=== PATIENT | male | born 2000 | race Caucasian/White ===

== ENCOUNTER 2021-11-04 10:05 | Inpatient (IN) | payer OTHER ==
[2021-11-04 10:53] VITALS: BMI 22.1
[2021-11-04] MEDS ORDERED: BUPRENORPHINE HCL 150 MCG, BUPRENORPHINE HCL 75 MCG BC PRN (11:14)
[2021-11-04] MEDS ORDERED: DICYCLOMINE HCL 10 MG CAPSULE PO PRN (11:14)
[2021-11-04] MEDS ORDERED: BENZOCAINE/MENTHOL (CHLORASEPTIC ) LOZENGE MM PRN (11:14)
[2021-11-04] MEDS ORDERED: ACETAMINOPHEN 325 MG TABLET (FP) PO PRN ×2 (11:14)
[2021-11-04] MEDS ORDERED: LOPERAMIDE HCL 2 MG CAPSULE PO PRN (11:14)
[2021-11-04] MEDS ORDERED: IBUPROFEN 400 MG TABLET (FP) PO PRN (11:14)
[2021-11-04] MEDS ORDERED: ONDANSETRON *ODT* 4 MG TABLET SL PRN (11:14)
[2021-11-04] MEDS ORDERED: NALOXONE HCL (KLOXXADO) 8 MG SPRAY NS PRN (11:14)
[2021-11-04] MEDS ORDERED: BISMUTH SUBSALICYLATE 262 MG/15 ML BTL PO PRN (11:14)
[2021-11-04] MEDS ORDERED: BUPRENORPHINE HCL 150 MCG, BUPRENORPHINE HCL 75 MCG BC ONE (11:14)
[2021-11-04] MEDS ORDERED: MAGNESIUM CITRATE 300 ML BOTTLE PO PRN (11:14)
[2021-11-04] MEDS ORDERED: MAG HYDROX/AL HYDROX/SIMETH 30 ML UNIT-DOSE CUP PO PRN (11:14)
[2021-11-04] MEDS ORDERED: cloNIDine HCL 0.1 MG TABLET PO ONE (11:14)
[2021-11-04] MEDS ORDERED: IBUPROFEN 600 MG TABLET (FP) PO PRN (11:14)
[2021-11-04] MEDS ORDERED: MAGNESIUM HYDROX 2400MG/30ML ORAL SUSPENSION 30 ML CUP PO PRN (11:14)
[2021-11-04] MEDS ORDERED: BUPRENORPHINE HCL 150 MCG FILM BC ONE (12:02)
[2021-11-04] MEDS ORDERED: BUPRENORPHINE HCL 75 MCG FILM BC ONE (12:03)
[2021-11-04] MEDS: METHOCARBAMOL 500 MG TABLET PO PRN ×2 (12:04→18:13)
[2021-11-04] MEDS: PRENATAL VITAMINS W/ FOLIC ACID TABLET (FP) PO SCH (12:05)
[2021-11-04] MEDS: NICOTINE 14 MG/24 HOURS TOPICAL PATCH TD SCH (12:10)
[2021-11-04] MEDS: NICOTINE 10 MG CARTRIDGE (INHALER) IH PRN ×3 (13:31→22:24)
[2021-11-04] MEDS: diazePAM 5 MG TABLET PO PRN ×3 (13:32→22:21)
[2021-11-04] MEDS: hydrOXYzine PAMOATE 25 MG CAPSULE (FP) PO SCH ×3 (13:32→22:19)
[2021-11-04 14:34] LABS: HEMATOCRIT 41.2 % (35.4-49); HEMOGLOBIN 13.8 GM/dL (11.7-16.9); MCHC 33.5 g/dl (32.0-35.9); MEAN CELL VOLUME 86.6 fl (80-96); MEAN PLT VOLUME 7.8 fl (7.5-11.1); PLATELET COUNT 245 10^3/uL (134-434); RBC 4.76 M/mm3 (4.00-5.60); RDW 13.9 % (11.9-15.9); WHITE BLOOD COUNT 4.8 K/mm3 (4.0-10.0)
[2021-11-04 14:36] LABS: ALBUMIN 4.3 g/dl (3.4-5.0); CALCIUM 9.7 mg/dL (8.5-10.1)
[2021-11-04 14:37] LABS: BLOOD UREA NITROGEN 6.7 mg/dL (7-18)
[2021-11-04 14:39] LABS: CREATININE 0.9 mg/dL (0.55-1.3)
[2021-11-04 14:41] LABS: BILIRUBIN,TOTAL 0.8 mg/dL (0.2-1); TOT PROT 7.5 g/dl (6.4-8.2)
[2021-11-04] MEDS ORDERED: cloNIDine HCL 0.1 MG TABLET PO PRN (15:14)
[2021-11-04] MEDS ORDERED: THIAMINE HCL 100 MG TABLET (FP) PO SCH (22:00)
[2021-11-04] MEDS ORDERED: MELATONIN 5 MG TABLETS PO SCH (22:00)
[2021-11-05] MEDS ORDERED: BUPRENORPHINE HCL 150 MCG, BUPRENORPHINE HCL 75 MCG BC PRN
[2021-11-05] MEDS ORDERED: BUPRENORPHINE HCL 150 MCG, BUPRENORPHINE HCL 75 MCG BC SCH (06:00)
[2021-11-05] MEDS ORDERED: BUPRENORPHINE HCL 150 MCG FILM BC ONE ×2 (07:42→09:54)
[2021-11-05] MEDS ORDERED: BUPRENORPHINE HCL 75 MCG FILM BC ONE ×2 (07:42→09:55)
[2021-11-05] MEDS: hydrOXYzine PAMOATE 25 MG CAPSULE (FP) PO SCH ×3 (07:46→14:28)
[2021-11-05] MEDS: NICOTINE 10 MG CARTRIDGE (INHALER) IH PRN (09:29)
[2021-11-05] MEDS: PRENATAL VITAMINS W/ FOLIC ACID TABLET (FP) PO SCH (10:25)
[2021-11-05] MEDS: NICOTINE 14 MG/24 HOURS TOPICAL PATCH TD SCH (10:26)
[2021-11-05 13:12] VITALS: BP 144/66; PULSE 76; TEMP 97.1
[2021-11-06] MEDS ORDERED: BUPRENORPHINE HCL 450 MCG FILM BC SCH (06:00)
[2021-11-07] MEDS ORDERED: BUPRENORPHINE/NALOXONE 4 MG/1 MG FILM PACKET SL SCH (06:00)
[2021-11-08] MEDS ORDERED: BUPRENORPHINE/NALOXONE 8 MG/2 MG FILM PACKET SL ONE (06:00)
== END 2021-11-05 14:58 | disposition left against medical advice (07) | DRG 770 ==
LOC: YASAS 10:05 → Y3N 11:15
PROVIDERS: ADMIT Allergy & Immunology; ATTEND Surgery
PROC: HZ2ZZZZ Detoxification Services for Substance Abuse Treatment (ICD-10-PCS; principal; 2021-11-04)
DX: F11.23 Opioid dependence with withdrawal (principal); F10.230 Alcohol dependence with withdrawal, uncomplicated; F13.230 Sedative, hypnotic or anxiolytic dependence with withdrawal, uncomplicated; F14.20 Cocaine dependence, uncomplicated; F17.210 Nicotine dependence, cigarettes, uncomplicated
CPT/HCPCS: 36415; 80053; 85027; 86780; 93005; 93010; C9803-CS; J0735; U0003; U0005

== ENCOUNTER 2021-12-04 14:51 | Inpatient (IN) | payer OTHER ==
[2021-12-04 15:47] VITALS: BMI 21.7
[2021-12-04] MEDS ORDERED: MAGNESIUM HYDROX 2400MG/30ML ORAL SUSPENSION 30 ML CUP PO PRN (17:28)
[2021-12-04] MEDS ORDERED: BISMUTH SUBSALICYLATE 524 MG/30 ML PO PRN (17:28)
[2021-12-04] MEDS ORDERED: P-EPHED 60MG/TRIPROLIDI 2.5MG TABLET PO PRN (17:28)
[2021-12-04] MEDS ORDERED: MAGNESIUM CITRATE 300 ML BOTTLE PO PRN (17:28)
[2021-12-04] MEDS ORDERED: BENZOCAINE/MENTHOL (CHLORASEPTIC ) LOZENGE MM PRN (17:28)
[2021-12-04] MEDS ORDERED: IBUPROFEN 400 MG TABLET (FP) PO PRN (17:28)
[2021-12-04] MEDS ORDERED: LOPERAMIDE HCL 2 MG CAPSULE PO PRN (17:28)
[2021-12-04] MEDS ORDERED: IBUPROFEN 600 MG TABLET (FP) PO PRN (17:28)
[2021-12-04] MEDS ORDERED: PROCHLORPERAZINE MALEATE 5 MG TABLET PO PRN (17:28)
[2021-12-04] MEDS ORDERED: MAG HYDROX/AL HYDROX/SIMETH 30 ML UNIT-DOSE CUP PO PRN (17:28)
[2021-12-04] MEDS ORDERED: DICYCLOMINE HCL 10 MG CAPSULE PO PRN (17:28)
[2021-12-04] MEDS ORDERED: guaiFENesin 200 MG/10 ML 10 ML UNIT-DOSE CUPS PO PRN (17:28)
[2021-12-04] MEDS ORDERED: ACETAMINOPHEN 325 MG TABLET (FP) PO PRN ×2 (17:28)
[2021-12-04] MEDS ORDERED: methaDONE HCL 10 MG TABLET (FOR DETOX USE ONLY) PO ONE (17:31)
[2021-12-04] MEDS: NICOTINE POLACRILEX 2 MG GUM BUC PRN ×2 (19:21→22:29)
[2021-12-04] MEDS: THIAMINE HCL 100 MG TABLET (FP) PO SCH (22:28)
[2021-12-04] MEDS: cloNIDine HCL 0.1 MG TABLET PO PRN (22:28)
[2021-12-04] MEDS: MELATONIN 5 MG TABLETS PO PRN (22:28)
[2021-12-04] MEDS: METHOCARBAMOL 500 MG TABLET PO PRN (22:28)
[2021-12-05] MEDS: NICOTINE POLACRILEX 2 MG GUM BUC PRN ×5 (06:03→22:08)
[2021-12-05] MEDS: METHOCARBAMOL 500 MG TABLET PO PRN ×4 (06:03→22:49)
[2021-12-05] MEDS: hydrOXYzine PAMOATE 25 MG CAPSULE (FP) PO PRN ×4 (06:03→22:05)
[2021-12-05 09:33] VITALS: RESP 18
[2021-12-05] MEDS ORDERED: PRENATAL VITAMINS W/ FOLIC ACID TABLET (FP) PO SCH (10:00)
[2021-12-05] MEDS ORDERED: NICOTINE 21 MG/24 HOURS TOPICAL PATCH TD SCH (13:00)
[2021-12-05] MEDS: MELATONIN 5 MG TABLETS PO PRN (22:05)
[2021-12-05] MEDS: THIAMINE HCL 100 MG TABLET (FP) PO SCH (22:05)
[2021-12-06] MEDS: METHOCARBAMOL 500 MG TABLET PO PRN (05:51)
[2021-12-06] MEDS: NICOTINE POLACRILEX 2 MG GUM BUC PRN ×2 (05:51→08:30)
[2021-12-06] MEDS: hydrOXYzine PAMOATE 25 MG CAPSULE (FP) PO PRN (05:53)
[2021-12-06] MEDS ORDERED: methaDONE HCL 10 MG TABLET (FOR DETOX USE ONLY) PO ONE ×2 (08:07→10:00)
[2021-12-06] MEDS: cloNIDine HCL 0.1 MG TABLET PO PRN (08:28)
[2021-12-06 09:22] VITALS: BP 134/58; PULSE 69; TEMP 98
== END 2021-12-06 09:09 | disposition home or self-care (01) | DRG 773 ==
LOC: YASAS 14:51 → Y3N 18:20
PROVIDERS: ADMIT Allergy & Immunology; ATTEND Surgery
PROC: HZ2ZZZZ Detoxification Services for Substance Abuse Treatment (ICD-10-PCS; principal; 2021-12-04)
DX: F11.23 Opioid dependence with withdrawal (principal); F14.20 Cocaine dependence, uncomplicated; F17.210 Nicotine dependence, cigarettes, uncomplicated; Z56.0 Unemployment, unspecified
CPT/HCPCS: 87811; C9803-CS; J0735; U0003; U0005

== ENCOUNTER 2022-05-05 16:16 | Inpatient (IN) | payer OTHER ==
[2022-05-05] MEDS ORDERED: MAG HYDROX/AL HYDROX/SIMETH 30 ML UNIT-DOSE CUP PO PRN (16:56)
[2022-05-05] MEDS ORDERED: ACETAMINOPHEN 325 MG TABLET (FP) PO PRN ×2 (16:56)
[2022-05-05] MEDS ORDERED: IBUPROFEN 600 MG TABLET (FP) PO PRN (16:56)
[2022-05-05] MEDS ORDERED: BENZOCAINE/MENTHOL (CHLORASEPTIC ) LOZENGE MM PRN (16:56)
[2022-05-05] MEDS ORDERED: ONDANSETRON *ODT* 4 MG TABLET SL PRN (16:56)
[2022-05-05] MEDS ORDERED: NALOXONE HCL (KLOXXADO) 8 MG SPRAY NS PRN (16:56)
[2022-05-05] MEDS ORDERED: BISMUTH SUBSALICYLATE 524 MG/30 ML PO PRN (16:56)
[2022-05-05] MEDS ORDERED: LOPERAMIDE HCL 2 MG CAPSULE PO PRN (16:56)
[2022-05-05] MEDS ORDERED: MAGNESIUM HYDROX 2400MG/30ML ORAL SUSPENSION 30 ML CUP PO PRN (16:56)
[2022-05-05] MEDS ORDERED: POLYETHYLENE GLYCOL (HEALTHYLAX) 3350 17 GM PACKET PO PRN (16:56)
[2022-05-05] MEDS ORDERED: DICYCLOMINE HCL 10 MG CAPSULE PO PRN (16:56)
[2022-05-05 17:16] VITALS: BMI 21.2
[2022-05-05] MEDS: NICOTINE 21 MG/24 HOURS TOPICAL PATCH TD SCH (17:42)
[2022-05-05] MEDS: PRENATAL VITAMINS W/ FOLIC ACID TABLET (FP) PO SCH (17:42)
[2022-05-05] MEDS ORDERED: methaDONE HCL 10 MG TABLET (FOR DETOX USE ONLY) PO ONE (18:00)
[2022-05-05] MEDS: NICOTINE 10 MG CARTRIDGE (INHALER) IH PRN ×2 (18:40→22:18)
[2022-05-05] MEDS: METHOCARBAMOL 500 MG TABLET PO PRN (20:49)
[2022-05-05] MEDS: MELATONIN 5 MG TABLETS PO SCH (22:15)
[2022-05-05] MEDS: THIAMINE HCL 100 MG TABLET (FP) PO SCH (22:15)
[2022-05-05] MEDS: IBUPROFEN 400 MG TABLET (FP) PO PRN (22:17)
[2022-05-05] MEDS: hydrOXYzine PAMOATE 25 MG CAPSULE (FP) PO PRN (22:17)
[2022-05-06] MEDS: METHOCARBAMOL 500 MG TABLET PO PRN ×3 (05:11→17:20)
[2022-05-06] MEDS: hydrOXYzine PAMOATE 25 MG CAPSULE (FP) PO PRN ×2 (05:11→17:19)
[2022-05-06] MEDS: PRENATAL VITAMINS W/ FOLIC ACID TABLET (FP) PO SCH (10:08)
[2022-05-06] MEDS: NICOTINE 21 MG/24 HOURS TOPICAL PATCH TD SCH (10:08)
[2022-05-06] MEDS: NICOTINE 10 MG CARTRIDGE (INHALER) IH PRN ×3 (10:12→21:47)
[2022-05-06] MEDS: diazePAM 5 MG TABLET PO PRN ×3 (12:06→21:45)
[2022-05-06 13:39] LABS: HEMATOCRIT 38.7 % (35.4-49); HEMOGLOBIN 12.7 GM/dL (11.7-16.9); MCH 28.6 pg (25.7-33.7); MCHC 32.7 g/dl (32.0-35.9); MEAN CELL VOLUME 87.3 fl (80-96); MEAN PLT VOLUME 7.8 fl (7.5-11.1); PLATELET COUNT 282 10^3/uL (134-434); RBC 4.44 M/mm3 (4.00-5.60); RDW 13.8 % (11.9-15.9); WHITE BLOOD COUNT 7.6 K/mm3 (4.0-10.0)
[2022-05-06 14:45] LABS: CHLORIDE 109 mmol/L (98-107); SODIUM 145 mmol/L (136-145)
[2022-05-06 14:49] LABS: ALBUMIN 3.5 g/dl (3.4-5.0); ANION GAP 8 MMOL/L (8-16); CO2 28 mmol/L (21-32); GLUCOSE,RANDOM 87 mg/dL (74-106)
[2022-05-06 14:50] LABS: BLOOD UREA NITROGEN 14.3 mg/dL (7-18)
[2022-05-06 14:53] LABS: CREATININE 0.9 mg/dL (0.55-1.3); SGOT/AST < 3 U/L (15-37); SGPT/ALT 16 U/L (13-61)
[2022-05-06 14:54] LABS: ALK PHOS 49 U/L (45-117); BILIRUBIN,TOTAL 0.2 mg/dL (0.2-1); TOT PROT 6.4 g/dl (6.4-8.2)
[2022-05-06] MEDS: cloNIDine HCL 0.1 MG TABLET PO PRN ×2 (17:19→22:30)
[2022-05-06] MEDS: MELATONIN 5 MG TABLETS PO SCH (22:31)
[2022-05-06] MEDS: THIAMINE HCL 100 MG TABLET (FP) PO SCH (22:31)
[2022-05-07] MEDS: diazePAM 5 MG TABLET PO PRN ×2 (05:24→12:07)
[2022-05-07] MEDS: METHOCARBAMOL 500 MG TABLET PO PRN ×2 (05:51→12:07)
[2022-05-07] MEDS: IBUPROFEN 400 MG TABLET (FP) PO PRN (05:51)
[2022-05-07 09:22] VITALS: PULSE 85; RESP 18
[2022-05-07] MEDS ORDERED: methaDONE HCL 10 MG TABLET (FOR DETOX USE ONLY) PO ONE (10:00)
[2022-05-07] MEDS: NICOTINE 21 MG/24 HOURS TOPICAL PATCH TD SCH (10:02)
[2022-05-07] MEDS: PRENATAL VITAMINS W/ FOLIC ACID TABLET (FP) PO SCH (10:02)
[2022-05-07] MEDS: NICOTINE 10 MG CARTRIDGE (INHALER) IH PRN (10:06)
[2022-05-07 13:02] VITALS: BP 150/74; TEMP 97.2
[2022-05-09] MEDS ORDERED: methaDONE HCL 10 MG TABLET (FOR DETOX USE ONLY) PO ONE (10:00)
== END 2022-05-07 13:10 | disposition left against medical advice (07) | DRG 770 ==
LOC: YASAS 16:16 → Y6N 17:16
PROVIDERS: ADMIT Allergy & Immunology; ATTEND Surgery
PROC: HZ2ZZZZ Detoxification Services for Substance Abuse Treatment (ICD-10-PCS; principal; 2022-05-05)
DX: F11.23 Opioid dependence with withdrawal (principal); F14.20 Cocaine dependence, uncomplicated; F12.90 Cannabis use, unspecified, uncomplicated; F17.210 Nicotine dependence, cigarettes, uncomplicated
CPT/HCPCS: 36415; 80053; 85027; 86780; C9803-CS; U0003; U0005

== ENCOUNTER 2022-05-11 15:14 | Inpatient (IN) | payer OTHER ==
[2022-05-11 15:36] VITALS: BMI 22.9
[2022-05-11] MEDS ORDERED: NALOXONE HCL (KLOXXADO) 8 MG SPRAY NS PRN (18:10)
[2022-05-11] MEDS ORDERED: POLYETHYLENE GLYCOL (HEALTHYLAX) 3350 17 GM PACKET PO PRN (18:10)
[2022-05-11] MEDS ORDERED: DICYCLOMINE HCL 10 MG CAPSULE PO PRN (18:10)
[2022-05-11] MEDS ORDERED: MAG HYDROX/AL HYDROX/SIMETH 30 ML UNIT-DOSE CUP PO PRN (18:10)
[2022-05-11] MEDS ORDERED: IBUPROFEN 400 MG TABLET (FP) PO PRN (18:10)
[2022-05-11] MEDS ORDERED: ONDANSETRON *ODT* 4 MG TABLET SL PRN (18:10)
[2022-05-11] MEDS ORDERED: BENZOCAINE/MENTHOL (CHLORASEPTIC ) LOZENGE MM PRN (18:10)
[2022-05-11] MEDS ORDERED: IBUPROFEN 600 MG TABLET (FP) PO PRN (18:10)
[2022-05-11] MEDS ORDERED: ACETAMINOPHEN 325 MG TABLET (FP) PO PRN ×2 (18:10)
[2022-05-11] MEDS ORDERED: NICOTINE POLACRILEX 2 MG GUM BUC PRN (18:10)
[2022-05-11] MEDS ORDERED: LOPERAMIDE HCL 2 MG CAPSULE PO PRN (18:10)
[2022-05-11] MEDS ORDERED: MAGNESIUM HYDROX 2400MG/30ML ORAL SUSPENSION 30 ML CUP PO PRN (18:10)
[2022-05-11] MEDS ORDERED: BISMUTH SUBSALICYLATE 524 MG/30 ML PO PRN (18:10)
[2022-05-11] MEDS: diazePAM 5 MG TABLET PO PRN (18:44)
[2022-05-11] MEDS: NICOTINE 21 MG/24 HOURS TOPICAL PATCH TD SCH (18:50)
[2022-05-11] MEDS: NICOTINE 10 MG CARTRIDGE (INHALER) IH PRN ×2 (18:50→22:01)
[2022-05-11] MEDS ORDERED: methaDONE HCL 10 MG TABLET (FOR DETOX USE ONLY) PO ONE (19:00)
[2022-05-11] MEDS: METHOCARBAMOL 500 MG TABLET PO PRN (22:00)
[2022-05-11] MEDS: THIAMINE HCL 100 MG TABLET (FP) PO SCH (22:01)
[2022-05-11] MEDS: cloNIDine HCL 0.1 MG TABLET PO PRN (22:01)
[2022-05-11] MEDS: hydrOXYzine PAMOATE 25 MG CAPSULE (FP) PO PRN (22:01)
[2022-05-11] MEDS: MELATONIN 5 MG TABLETS PO SCH (22:01)
[2022-05-12] MEDS: diazePAM 5 MG TABLET PO PRN ×6 (00:34→22:22)
[2022-05-12] MEDS: METHOCARBAMOL 500 MG TABLET PO PRN ×2 (05:24→14:16)
[2022-05-12] MEDS: NICOTINE 10 MG CARTRIDGE (INHALER) IH PRN ×4 (05:26→22:25)
[2022-05-12] MEDS: PRENATAL VITAMINS W/ FOLIC ACID TABLET (FP) PO SCH (10:06)
[2022-05-12] MEDS: NICOTINE 21 MG/24 HOURS TOPICAL PATCH TD SCH (10:07)
[2022-05-12] MEDS: cloNIDine HCL 0.1 MG TABLET PO PRN ×2 (12:16→16:35)
[2022-05-12 20:05] LABS: HEMATOCRIT 37.3 % (35.4-49); HEMOGLOBIN 12.2 GM/dL (11.7-16.9); MCH 28.5 pg (25.7-33.7); MCHC 32.8 g/dl (32.0-35.9); MEAN CELL VOLUME 86.9 fl (80-96); MEAN PLT VOLUME 7.9 fl (7.5-11.1); PLATELET COUNT 263 10^3/uL (134-434); RBC 4.29 M/mm3 (4.00-5.60); RDW 13.6 % (11.9-15.9); WHITE BLOOD COUNT 6.5 K/mm3 (4.0-10.0)
[2022-05-12 20:09] LABS: ALBUMIN 3.2 g/dl (3.4-5.0); BLOOD UREA NITROGEN 7.8 mg/dL (7-18); CALCIUM 9.1 mg/dL (8.5-10.1)
[2022-05-12 20:12] LABS: CREATININE 0.9 mg/dL (0.55-1.3)
[2022-05-12 20:14] LABS: BILIRUBIN,TOTAL 0.5 mg/dL (0.2-1)
[2022-05-12] MEDS: hydrOXYzine PAMOATE 25 MG CAPSULE (FP) PO PRN (20:26)
[2022-05-12] MEDS: THIAMINE HCL 100 MG TABLET (FP) PO SCH (22:22)
[2022-05-12] MEDS: MELATONIN 5 MG TABLETS PO SCH (22:22)
[2022-05-13] MEDS: diazePAM 5 MG TABLET PO PRN ×2 (05:24→10:07)
[2022-05-13] MEDS: METHOCARBAMOL 500 MG TABLET PO PRN (05:25)
[2022-05-13] MEDS: cloNIDine HCL 0.1 MG TABLET PO PRN (08:25)
[2022-05-13 09:02] VITALS: BP 112/79; PULSE 87; RESP 18; TEMP 97.1
[2022-05-13] MEDS ORDERED: methaDONE HCL 10 MG TABLET (FOR DETOX USE ONLY) PO ONE (10:00)
[2022-05-13] MEDS: NICOTINE 21 MG/24 HOURS TOPICAL PATCH TD SCH (10:06)
[2022-05-13] MEDS: PRENATAL VITAMINS W/ FOLIC ACID TABLET (FP) PO SCH (10:07)
[2022-05-13] MEDS: NICOTINE 10 MG CARTRIDGE (INHALER) IH PRN (10:10)
[2022-05-15] MEDS ORDERED: methaDONE HCL 10 MG TABLET (FOR DETOX USE ONLY) PO ONE (10:00)
== END 2022-05-13 11:51 | disposition left against medical advice (07) | DRG 770 ==
LOC: YASAS 15:14 → Y6N 18:20
PROVIDERS: ADMIT Allergy & Immunology; ATTEND Surgery
PROC: HZ2ZZZZ Detoxification Services for Substance Abuse Treatment (ICD-10-PCS; principal; 2022-05-11)
DX: F11.23 Opioid dependence with withdrawal (principal); F14.20 Cocaine dependence, uncomplicated; F17.210 Nicotine dependence, cigarettes, uncomplicated; F41.8 Other specified anxiety disorders; F32.A Depression, unspecified; G47.00 Insomnia, unspecified
CPT/HCPCS: 36415; 80053; 85027; 86780; C9803-CS; U0003; U0005

== ENCOUNTER 2022-07-05 13:37 | Inpatient (IN) | payer OTHER ==
[2022-07-05 13:59] VITALS: BMI 19.0
[2022-07-05] MEDS ORDERED: MAGNESIUM HYDROX 2400MG/30ML ORAL SUSPENSION 30 ML CUP PO PRN (18:50)
[2022-07-05] MEDS ORDERED: guaiFENesin 200 MG/10 ML 10 ML UNIT-DOSE CUPS PO PRN (18:50)
[2022-07-05] MEDS ORDERED: BENZOCAINE/MENTHOL (CHLORASEPTIC ) LOZENGE MM PRN (18:50)
[2022-07-05] MEDS ORDERED: POLYETHYLENE GLYCOL (HEALTHYLAX) 3350 17 GM PACKET PO PRN (18:50)
[2022-07-05] MEDS ORDERED: LOPERAMIDE HCL 2 MG CAPSULE PO PRN (18:50)
[2022-07-05] MEDS ORDERED: MAG HYDROX/AL HYDROX/SIMETH 30 ML UNIT-DOSE CUP PO PRN (18:50)
[2022-07-05] MEDS ORDERED: P-EPHED 60MG/TRIPROLIDI 2.5MG TABLET PO PRN (18:50)
[2022-07-05] MEDS: NICOTINE POLACRILEX 2 MG GUM BC PRN ×2 (19:37→21:51)
[2022-07-05] MEDS ORDERED: TUBERCULIN PPD 5 TU/0.1ML VIAL ID ONE (20:02)
[2022-07-05] MEDS: THIAMINE HCL 100 MG TABLET (FP) PO SCH (21:09)
[2022-07-05] MEDS: MELATONIN 5 MG TABLETS PO SCH (21:10)
[2022-07-05] MEDS: NICOTINE 10 MG CARTRIDGE (INHALER) IH PRN (21:50)
[2022-07-06 02:11] LABS: URINE APPEARANCE CLEAR; URINE BILIRUBIN NEGATIVE (NEGATIVE); URINE COLOR YELLOW; URINE GLUCOSE (UA) NEGATIVE (NEGATIVE); URINE KETONE NEGATIVE (NEGATIVE); URINE LEUK ESTERASE NEGATIVE (NEGATIVE); URINE NITRITE NEGATIVE (NEGATIVE); URINE PROTEIN NEGATIVE (NEGATIVE)
[2022-07-06] MEDS: NICOTINE POLACRILEX 2 MG GUM BC PRN ×3 (05:56→21:17)
[2022-07-06] MEDS: NICOTINE 10 MG CARTRIDGE (INHALER) IH PRN ×3 (05:57→21:17)
[2022-07-06] MEDS ORDERED: methaDONE HCL 10 MG TABLET PO ONE (06:00)
[2022-07-06] MEDS: hydrOXYzine PAMOATE 25 MG CAPSULE (FP) PO PRN ×2 (09:49→17:31)
[2022-07-06] MEDS: PRENATAL VITAMINS W/ FOLIC ACID TABLET (FP) PO SCH (11:22)
[2022-07-06] MEDS: NICOTINE 21 MG/24 HOURS TOPICAL PATCH TD SCH (11:23)
[2022-07-06] MEDS: THIAMINE HCL 100 MG TABLET (FP) PO SCH (21:16)
[2022-07-06] MEDS: MELATONIN 5 MG TABLETS PO SCH (21:16)
[2022-07-07] MEDS: hydrOXYzine PAMOATE 25 MG CAPSULE (FP) PO PRN ×3 (02:03→19:50)
[2022-07-07] MEDS ORDERED: methaDONE HCL 10 MG TABLET PO SCH (09:00)
[2022-07-07] MEDS: NICOTINE 10 MG CARTRIDGE (INHALER) IH PRN ×3 (09:16→19:50)
[2022-07-07] MEDS: NICOTINE 21 MG/24 HOURS TOPICAL PATCH TD SCH (09:17)
[2022-07-07] MEDS: NICOTINE POLACRILEX 2 MG GUM BC PRN ×3 (09:17→19:50)
[2022-07-07] MEDS: PRENATAL VITAMINS W/ FOLIC ACID TABLET (FP) PO SCH (10:25)
[2022-07-07 13:55] LABS: HEMATOCRIT 35.7 % (35.4-49); MCH 29.1 pg (25.7-33.7); MCHC 33.5 g/dl (32.0-35.9); MEAN CELL VOLUME 86.6 fl (80-96); MEAN PLT VOLUME 9.1 fl (7.5-11.1); PLATELET COUNT 235 10^3/uL (134-434); RBC 4.12 M/mm3 (4.00-5.60); RDW 13.7 % (11.9-15.9); WHITE BLOOD COUNT 9.2 K/mm3 (4.0-10.0)
[2022-07-07 14:40] LABS: CALCIUM 9.2 mg/dL (8.5-10.1)
[2022-07-07 14:41] LABS: ALBUMIN 3.7 g/dl (3.4-5.0); BLOOD UREA NITROGEN 12.4 mg/dL (7-18)
[2022-07-07 14:44] LABS: CREATININE 0.8 mg/dL (0.55-1.3)
[2022-07-07 14:45] LABS: TOT PROT 6.9 g/dl (6.4-8.2)
[2022-07-07 14:46] LABS: BILIRUBIN,TOTAL 0.2 mg/dL (0.2-1)
[2022-07-07] MEDS: THIAMINE HCL 100 MG TABLET (FP) PO SCH (21:33)
[2022-07-07] MEDS: MELATONIN 5 MG TABLETS PO SCH (21:33)
[2022-07-08] MEDS: hydrOXYzine PAMOATE 25 MG CAPSULE (FP) PO PRN ×3 (06:04→21:50)
[2022-07-08] MEDS: NICOTINE 10 MG CARTRIDGE (INHALER) IH PRN ×5 (06:05→21:49)
[2022-07-08] MEDS: NICOTINE POLACRILEX 2 MG GUM BC PRN ×3 (06:05→12:51)
[2022-07-08] MEDS: NICOTINE 21 MG/24 HOURS TOPICAL PATCH TD SCH (09:48)
[2022-07-08] MEDS: PRENATAL VITAMINS W/ FOLIC ACID TABLET (FP) PO SCH (09:48)
[2022-07-08] MEDS: THIAMINE HCL 100 MG TABLET (FP) PO SCH (21:50)
[2022-07-08] MEDS: MELATONIN 5 MG TABLETS PO SCH (21:50)
[2022-07-09] MEDS: hydrOXYzine PAMOATE 25 MG CAPSULE (FP) PO PRN ×3 (06:22→21:30)
[2022-07-09] MEDS: NICOTINE 10 MG CARTRIDGE (INHALER) IH PRN ×4 (06:22→21:29)
[2022-07-09] MEDS: NICOTINE POLACRILEX 2 MG GUM BC PRN ×4 (06:23→21:31)
[2022-07-09] MEDS: NICOTINE 21 MG/24 HOURS TOPICAL PATCH TD SCH (10:44)
[2022-07-09] MEDS: PRENATAL VITAMINS W/ FOLIC ACID TABLET (FP) PO SCH (10:44)
[2022-07-09] MEDS: THIAMINE HCL 100 MG TABLET (FP) PO SCH (21:29)
[2022-07-09] MEDS: MELATONIN 5 MG TABLETS PO SCH (21:30)
[2022-07-10] MEDS: NICOTINE POLACRILEX 2 MG GUM BC PRN ×5 (06:00→21:33)
[2022-07-10] MEDS: NICOTINE 10 MG CARTRIDGE (INHALER) IH PRN ×3 (06:00→21:32)
[2022-07-10] MEDS: hydrOXYzine PAMOATE 25 MG CAPSULE (FP) PO PRN ×3 (06:00→21:32)
[2022-07-10] MEDS: NICOTINE 21 MG/24 HOURS TOPICAL PATCH TD SCH (09:36)
[2022-07-10] MEDS: PRENATAL VITAMINS W/ FOLIC ACID TABLET (FP) PO SCH (09:36)
[2022-07-10] MEDS: MELATONIN 5 MG TABLETS PO SCH (21:32)
[2022-07-10] MEDS: THIAMINE HCL 100 MG TABLET (FP) PO SCH (21:32)
[2022-07-11] MEDS: NICOTINE 10 MG CARTRIDGE (INHALER) IH PRN ×4 (06:08→21:08)
[2022-07-11] MEDS: hydrOXYzine PAMOATE 25 MG CAPSULE (FP) PO PRN ×3 (06:08→18:19)
[2022-07-11] MEDS: NICOTINE POLACRILEX 2 MG GUM BC PRN ×4 (06:09→21:59)
[2022-07-11] MEDS: NICOTINE 21 MG/24 HOURS TOPICAL PATCH TD SCH (10:38)
[2022-07-11] MEDS: PRENATAL VITAMINS W/ FOLIC ACID TABLET (FP) PO SCH (10:38)
[2022-07-11] MEDS: IBUPROFEN 400 MG TABLET (FP) PO PRN (11:03)
[2022-07-11] MEDS: MELATONIN 5 MG TABLETS PO SCH (21:06)
[2022-07-11] MEDS: ACETAMINOPHEN 325 MG TABLET (FP) PO PRN (21:07)
[2022-07-11] MEDS: THIAMINE HCL 100 MG TABLET (FP) PO SCH (21:08)
[2022-07-12] MEDS: hydrOXYzine PAMOATE 25 MG CAPSULE (FP) PO PRN ×3 (05:51→17:12)
[2022-07-12] MEDS: NICOTINE POLACRILEX 2 MG GUM BC PRN ×5 (05:52→21:42)
[2022-07-12] MEDS: NICOTINE 10 MG CARTRIDGE (INHALER) IH PRN ×5 (05:52→21:41)
[2022-07-12] MEDS: PRENATAL VITAMINS W/ FOLIC ACID TABLET (FP) PO SCH (09:44)
[2022-07-12] MEDS: NICOTINE 21 MG/24 HOURS TOPICAL PATCH TD SCH (09:44)
[2022-07-12] MEDS: ACETAMINOPHEN 325 MG TABLET (FP) PO PRN ×2 (09:47→17:13)
[2022-07-12] MEDS: IBUPROFEN 400 MG TABLET (FP) PO PRN (13:44)
[2022-07-12] MEDS: THIAMINE HCL 100 MG TABLET (FP) PO SCH (21:41)
[2022-07-12] MEDS: MELATONIN 5 MG TABLETS PO SCH (21:41)
[2022-07-13] MEDS: hydrOXYzine PAMOATE 25 MG CAPSULE (FP) PO PRN (05:56)
[2022-07-13] MEDS: ACETAMINOPHEN 325 MG TABLET (FP) PO PRN ×2 (05:57→13:02)
[2022-07-13] MEDS: NICOTINE 10 MG CARTRIDGE (INHALER) IH PRN ×5 (05:58→21:07)
[2022-07-13] MEDS: NICOTINE POLACRILEX 2 MG GUM BC PRN ×4 (05:58→17:24)
[2022-07-13] MEDS: PRENATAL VITAMINS W/ FOLIC ACID TABLET (FP) PO SCH (09:41)
[2022-07-13] MEDS: NICOTINE 21 MG/24 HOURS TOPICAL PATCH TD SCH (09:42)
[2022-07-13] MEDS: IBUPROFEN 400 MG TABLET (FP) PO PRN (09:43)
[2022-07-13] MEDS: BACITRACIN ZINC 15 GM TUBE TOPICAL OINTMENT TP SCH ×2 (12:52→21:07)
[2022-07-13] MEDS: THIAMINE HCL 100 MG TABLET (FP) PO SCH (21:06)
[2022-07-13] MEDS: MELATONIN 5 MG TABLETS PO SCH (21:06)
[2022-07-14] MEDS: ACETAMINOPHEN 325 MG TABLET (FP) PO PRN ×2 (05:47→17:55)
[2022-07-14] MEDS: NICOTINE 10 MG CARTRIDGE (INHALER) IH PRN ×4 (05:49→21:30)
[2022-07-14] MEDS: NICOTINE POLACRILEX 2 MG GUM BC PRN ×5 (05:49→19:57)
[2022-07-14] MEDS ORDERED: methaDONE HCL 10 MG TABLET PO SCH (06:00)
[2022-07-14] MEDS: NICOTINE 21 MG/24 HOURS TOPICAL PATCH TD SCH (09:46)
[2022-07-14] MEDS: PRENATAL VITAMINS W/ FOLIC ACID TABLET (FP) PO SCH (09:46)
[2022-07-14] MEDS: IBUPROFEN 400 MG TABLET (FP) PO PRN (09:48)
[2022-07-14] MEDS: BACITRACIN ZINC 15 GM TUBE TOPICAL OINTMENT TP SCH ×2 (09:51→21:29)
[2022-07-14] MEDS: THIAMINE HCL 100 MG TABLET (FP) PO SCH (21:28)
[2022-07-14] MEDS ORDERED: MELATONIN 5 MG TABLETS PO SCH (22:00)
[2022-07-15] MEDS: NICOTINE 10 MG CARTRIDGE (INHALER) IH PRN ×5 (06:19→21:38)
[2022-07-15] MEDS: NICOTINE POLACRILEX 2 MG GUM BC PRN ×4 (06:19→18:38)
[2022-07-15] MEDS: PRENATAL VITAMINS W/ FOLIC ACID TABLET (FP) PO SCH (10:23)
[2022-07-15] MEDS: NICOTINE 21 MG/24 HOURS TOPICAL PATCH TD SCH (10:24)
[2022-07-15] MEDS: BACITRACIN ZINC 15 GM TUBE TOPICAL OINTMENT TP SCH ×2 (10:24→21:36)
[2022-07-15] MEDS: IBUPROFEN 400 MG TABLET (FP) PO PRN ×2 (10:26→18:38)
[2022-07-15] MEDS: hydrOXYzine PAMOATE 25 MG CAPSULE (FP) PO PRN ×2 (15:51→23:40)
[2022-07-15] MEDS: THIAMINE HCL 100 MG TABLET (FP) PO SCH (21:35)
[2022-07-15] MEDS: SUVOREXANT 10 MG TABLET PO PRN (21:36)
[2022-07-15] MEDS: ACETAMINOPHEN 325 MG TABLET (FP) PO PRN (21:37)
[2022-07-16] MEDS: ACETAMINOPHEN 325 MG TABLET (FP) PO PRN ×3 (05:49→21:07)
[2022-07-16] MEDS: hydrOXYzine PAMOATE 25 MG CAPSULE (FP) PO PRN ×3 (05:49→21:05)
[2022-07-16] MEDS: NICOTINE 10 MG CARTRIDGE (INHALER) IH PRN ×4 (05:50→21:06)
[2022-07-16] MEDS: NICOTINE POLACRILEX 2 MG GUM BC PRN ×4 (05:51→18:56)
[2022-07-16] MEDS: NICOTINE 21 MG/24 HOURS TOPICAL PATCH TD SCH (09:34)
[2022-07-16] MEDS: BACITRACIN ZINC 15 GM TUBE TOPICAL OINTMENT TP SCH ×2 (09:35→21:08)
[2022-07-16] MEDS: PRENATAL VITAMINS W/ FOLIC ACID TABLET (FP) PO SCH (09:35)
[2022-07-16] MEDS: IBUPROFEN 400 MG TABLET (FP) PO PRN ×2 (09:36→18:57)
[2022-07-16] MEDS: THIAMINE HCL 100 MG TABLET (FP) PO SCH (21:05)
[2022-07-16] MEDS: SUVOREXANT 10 MG TABLET PO PRN (21:06)
[2022-07-17] MEDS: ACETAMINOPHEN 325 MG TABLET (FP) PO PRN ×2 (05:56→13:15)
[2022-07-17] MEDS: NICOTINE 10 MG CARTRIDGE (INHALER) IH PRN ×4 (05:58→21:03)
[2022-07-17] MEDS: hydrOXYzine PAMOATE 25 MG CAPSULE (FP) PO PRN ×3 (05:58→21:02)
[2022-07-17] MEDS: NICOTINE POLACRILEX 2 MG GUM BC PRN ×5 (05:59→22:23)
[2022-07-17] MEDS: BACITRACIN ZINC 15 GM TUBE TOPICAL OINTMENT TP SCH ×2 (09:57→21:03)
[2022-07-17] MEDS: NICOTINE 21 MG/24 HOURS TOPICAL PATCH TD SCH (09:57)
[2022-07-17] MEDS: PRENATAL VITAMINS W/ FOLIC ACID TABLET (FP) PO SCH (09:57)
[2022-07-17] MEDS: IBUPROFEN 400 MG TABLET (FP) PO PRN (09:58)
[2022-07-17] MEDS: THIAMINE HCL 100 MG TABLET (FP) PO SCH (21:02)
[2022-07-17] MEDS: SUVOREXANT 10 MG TABLET PO PRN (21:02)
[2022-07-18] MEDS: ACETAMINOPHEN 325 MG TABLET (FP) PO PRN ×2 (06:22→13:31)
[2022-07-18] MEDS: hydrOXYzine PAMOATE 25 MG CAPSULE (FP) PO PRN ×2 (06:23→13:31)
[2022-07-18] MEDS: NICOTINE POLACRILEX 2 MG GUM BC PRN ×5 (06:24→22:15)
[2022-07-18] MEDS: NICOTINE 10 MG CARTRIDGE (INHALER) IH PRN ×3 (06:25→22:16)
[2022-07-18] MEDS: NICOTINE 21 MG/24 HOURS TOPICAL PATCH TD SCH (09:38)
[2022-07-18] MEDS: PRENATAL VITAMINS W/ FOLIC ACID TABLET (FP) PO SCH (09:38)
[2022-07-18] MEDS: IBUPROFEN 400 MG TABLET (FP) PO PRN ×2 (09:40→16:51)
[2022-07-18] MEDS: BACITRACIN ZINC 15 GM TUBE TOPICAL OINTMENT TP SCH ×2 (10:23→22:15)
[2022-07-18] MEDS: hydrOXYzine PAMOATE 50 MG CAPSULE (FP) PO PRN (19:03)
[2022-07-18] MEDS ORDERED: SUVOREXANT 10 MG TABLET PO PRN (22:00)
[2022-07-18] MEDS: SUVOREXANT 15 MG TABLET PO PRN (22:14)
[2022-07-18] MEDS: THIAMINE HCL 100 MG TABLET (FP) PO SCH (22:14)
[2022-07-19] MEDS: hydrOXYzine PAMOATE 50 MG CAPSULE (FP) PO PRN ×3 (06:02→21:44)
[2022-07-19] MEDS: ACETAMINOPHEN 325 MG TABLET (FP) PO PRN ×2 (06:02→21:46)
[2022-07-19] MEDS: NICOTINE POLACRILEX 2 MG GUM BC PRN ×5 (06:03→21:47)
[2022-07-19] MEDS: NICOTINE 10 MG CARTRIDGE (INHALER) IH PRN ×4 (06:04→21:46)
[2022-07-19] MEDS: NICOTINE 21 MG/24 HOURS TOPICAL PATCH TD SCH (09:31)
[2022-07-19] MEDS: PRENATAL VITAMINS W/ FOLIC ACID TABLET (FP) PO SCH (09:31)
[2022-07-19] MEDS: IBUPROFEN 400 MG TABLET (FP) PO PRN (09:31)
[2022-07-19] MEDS: BACITRACIN ZINC 15 GM TUBE TOPICAL OINTMENT TP SCH ×2 (09:31→21:43)
[2022-07-19] MEDS: THIAMINE HCL 100 MG TABLET (FP) PO SCH (21:44)
[2022-07-19] MEDS: SUVOREXANT 15 MG TABLET PO PRN (21:45)
[2022-07-20] MEDS: hydrOXYzine PAMOATE 50 MG CAPSULE (FP) PO PRN ×3 (05:50→21:04)
[2022-07-20] MEDS: NICOTINE 10 MG CARTRIDGE (INHALER) IH PRN ×3 (05:52→21:05)
[2022-07-20] MEDS: NICOTINE POLACRILEX 2 MG GUM BC PRN ×4 (05:52→21:05)
[2022-07-20] MEDS: ACETAMINOPHEN 325 MG TABLET (FP) PO PRN (07:51)
[2022-07-20] MEDS: NICOTINE 21 MG/24 HOURS TOPICAL PATCH TD SCH (10:15)
[2022-07-20] MEDS: PRENATAL VITAMINS W/ FOLIC ACID TABLET (FP) PO SCH (10:15)
[2022-07-20] MEDS: BACITRACIN ZINC 15 GM TUBE TOPICAL OINTMENT TP SCH ×2 (10:15→21:04)
[2022-07-20] MEDS: IBUPROFEN 400 MG TABLET (FP) PO PRN (10:16)
[2022-07-20] MEDS: THIAMINE HCL 100 MG TABLET (FP) PO SCH (21:04)
[2022-07-20] MEDS: SUVOREXANT 15 MG TABLET PO PRN (21:04)
[2022-07-21] MEDS: hydrOXYzine PAMOATE 50 MG CAPSULE (FP) PO PRN ×3 (05:55→23:02)
[2022-07-21] MEDS: NICOTINE 10 MG CARTRIDGE (INHALER) IH PRN ×4 (05:55→21:06)
[2022-07-21] MEDS: NICOTINE POLACRILEX 2 MG GUM BC PRN ×4 (05:56→21:06)
[2022-07-21] MEDS: PRENATAL VITAMINS W/ FOLIC ACID TABLET (FP) PO SCH (09:30)
[2022-07-21] MEDS: NICOTINE 21 MG/24 HOURS TOPICAL PATCH TD SCH (09:30)
[2022-07-21] MEDS: BACITRACIN ZINC 15 GM TUBE TOPICAL OINTMENT TP SCH ×2 (09:32→21:07)
[2022-07-21] MEDS: ACETAMINOPHEN 325 MG TABLET (FP) PO PRN (09:33)
[2022-07-21] MEDS: IBUPROFEN 400 MG TABLET (FP) PO PRN (14:45)
[2022-07-21] MEDS: THIAMINE HCL 100 MG TABLET (FP) PO SCH (21:05)
[2022-07-21] MEDS: SUVOREXANT 15 MG TABLET PO PRN (21:06)
[2022-07-22] MEDS: NICOTINE 10 MG CARTRIDGE (INHALER) IH PRN ×4 (05:52→21:35)
[2022-07-22] MEDS: hydrOXYzine PAMOATE 50 MG CAPSULE (FP) PO PRN ×3 (05:52→21:34)
[2022-07-22] MEDS: NICOTINE POLACRILEX 2 MG GUM BC PRN ×5 (05:52→21:36)
[2022-07-22] MEDS: BACITRACIN ZINC 15 GM TUBE TOPICAL OINTMENT TP SCH ×2 (10:53→22:57)
[2022-07-22] MEDS: NICOTINE 21 MG/24 HOURS TOPICAL PATCH TD SCH (10:54)
[2022-07-22] MEDS: ACETAMINOPHEN 325 MG TABLET (FP) PO PRN ×2 (10:54→21:36)
[2022-07-22] MEDS: PRENATAL VITAMINS W/ FOLIC ACID TABLET (FP) PO SCH (10:54)
[2022-07-22] MEDS ORDERED: busPIRone HCL 5 MG TABLET PO ONE (14:00)
[2022-07-22] MEDS: THIAMINE HCL 100 MG TABLET (FP) PO SCH (21:34)
[2022-07-22] MEDS: busPIRone HCL 5 MG TABLET PO SCH (21:35)
[2022-07-22] MEDS: SUVOREXANT 15 MG TABLET PO PRN (21:35)
[2022-07-23] MEDS: hydrOXYzine PAMOATE 50 MG CAPSULE (FP) PO PRN ×3 (05:50→21:07)
[2022-07-23] MEDS: NICOTINE POLACRILEX 2 MG GUM BC PRN ×6 (05:52→21:44)
[2022-07-23] MEDS: NICOTINE 10 MG CARTRIDGE (INHALER) IH PRN ×4 (05:52→18:55)
[2022-07-23] MEDS: busPIRone HCL 5 MG TABLET PO SCH ×2 (09:37→21:07)
[2022-07-23] MEDS: BACITRACIN ZINC 15 GM TUBE TOPICAL OINTMENT TP SCH ×2 (09:37→21:45)
[2022-07-23] MEDS: NICOTINE 21 MG/24 HOURS TOPICAL PATCH TD SCH (09:38)
[2022-07-23] MEDS: PRENATAL VITAMINS W/ FOLIC ACID TABLET (FP) PO SCH (09:38)
[2022-07-23] MEDS: ACETAMINOPHEN 325 MG TABLET (FP) PO PRN (09:39)
[2022-07-23] MEDS: IBUPROFEN 400 MG TABLET (FP) PO PRN (16:34)
[2022-07-23] MEDS: THIAMINE HCL 100 MG TABLET (FP) PO SCH (21:07)
[2022-07-23] MEDS: SUVOREXANT 15 MG TABLET PO PRN (21:07)
[2022-07-24] MEDS: hydrOXYzine PAMOATE 50 MG CAPSULE (FP) PO PRN ×3 (05:51→21:00)
[2022-07-24] MEDS: NICOTINE POLACRILEX 2 MG GUM BC PRN ×4 (05:53→19:54)
[2022-07-24] MEDS: NICOTINE 10 MG CARTRIDGE (INHALER) IH PRN ×3 (06:55→19:54)
[2022-07-24] MEDS: BACITRACIN ZINC 15 GM TUBE TOPICAL OINTMENT TP SCH ×2 (10:14→21:01)
[2022-07-24] MEDS: NICOTINE 21 MG/24 HOURS TOPICAL PATCH TD SCH (10:15)
[2022-07-24] MEDS: PRENATAL VITAMINS W/ FOLIC ACID TABLET (FP) PO SCH (10:15)
[2022-07-24] MEDS: ACETAMINOPHEN 325 MG TABLET (FP) PO PRN ×2 (10:15→19:55)
[2022-07-24] MEDS: busPIRone HCL 5 MG TABLET PO SCH ×2 (10:15→21:00)
[2022-07-24] MEDS: IBUPROFEN 400 MG TABLET (FP) PO PRN (13:18)
[2022-07-24] MEDS: THIAMINE HCL 100 MG TABLET (FP) PO SCH (21:00)
[2022-07-24] MEDS: SUVOREXANT 15 MG TABLET PO PRN (21:01)
[2022-07-25] MEDS: hydrOXYzine PAMOATE 50 MG CAPSULE (FP) PO PRN ×3 (05:53→18:05)
[2022-07-25] MEDS: NICOTINE POLACRILEX 2 MG GUM BC PRN ×6 (05:54→21:38)
[2022-07-25] MEDS: NICOTINE 21 MG/24 HOURS TOPICAL PATCH TD SCH (09:34)
[2022-07-25] MEDS: BACITRACIN ZINC 15 GM TUBE TOPICAL OINTMENT TP SCH ×2 (09:34→21:36)
[2022-07-25] MEDS: PRENATAL VITAMINS W/ FOLIC ACID TABLET (FP) PO SCH (09:34)
[2022-07-25] MEDS: busPIRone HCL 5 MG TABLET PO SCH (09:34)
[2022-07-25] MEDS: ACETAMINOPHEN 325 MG TABLET (FP) PO PRN ×2 (09:36→18:05)
[2022-07-25] MEDS: NICOTINE 10 MG CARTRIDGE (INHALER) IH PRN ×3 (09:36→21:38)
[2022-07-25] MEDS ORDERED: busPIRone HCL 5 MG TABLET PO ONE (10:45)
[2022-07-25] MEDS: IBUPROFEN 400 MG TABLET (FP) PO PRN ×2 (14:41→21:36)
[2022-07-25] MEDS: busPIRone HCL 10 MG TABLET (FP) PO SCH (21:35)
[2022-07-25] MEDS: THIAMINE HCL 100 MG TABLET (FP) PO SCH (21:35)
[2022-07-25] MEDS: SUVOREXANT 15 MG TABLET PO PRN (21:35)
[2022-07-25] MEDS ORDERED: busPIRone HCL 5 MG TABLET PO SCH (22:00)
[2022-07-26] MEDS: NICOTINE 10 MG CARTRIDGE (INHALER) IH PRN ×3 (06:18→13:51)
[2022-07-26] MEDS: NICOTINE POLACRILEX 2 MG GUM BC PRN ×3 (06:19→13:52)
[2022-07-26] MEDS: hydrOXYzine PAMOATE 50 MG CAPSULE (FP) PO PRN (06:21)
[2022-07-26 06:38] VITALS: BP 154/68; PULSE 74; RESP 17; TEMP 98
[2022-07-26] MEDS: NICOTINE 21 MG/24 HOURS TOPICAL PATCH TD SCH (09:30)
[2022-07-26] MEDS: BACITRACIN ZINC 15 GM TUBE TOPICAL OINTMENT TP SCH (09:30)
[2022-07-26] MEDS: PRENATAL VITAMINS W/ FOLIC ACID TABLET (FP) PO SCH (09:30)
[2022-07-26] MEDS: busPIRone HCL 10 MG TABLET (FP) PO SCH (09:30)
[2022-07-26] MEDS: ACETAMINOPHEN 325 MG TABLET (FP) PO PRN (13:50)
[2022-07-26] MEDS ORDERED: SUVOREXANT 5 MG TABLET PO PRN (22:00)
== END 2022-07-26 14:27 | disposition home or self-care (01) | DRG 772 ==
LOC: YASAS 13:37 → Y3W 18:34
PROVIDERS: ADMIT Allergy & Immunology; ATTEND Allergy & Immunology
PROC: HZ42ZZZ Group Counseling for Substance Abuse Treatment, Cognitive-Behavioral (ICD-10-PCS; principal; 2022-07-05)
DX: F14.20 Cocaine dependence, uncomplicated (principal); F13.20 Sedative, hypnotic or anxiolytic dependence, uncomplicated; F11.20 Opioid dependence, uncomplicated; F12.20 Cannabis dependence, uncomplicated; F17.210 Nicotine dependence, cigarettes, uncomplicated; F32.A Depression, unspecified; F41.9 Anxiety disorder, unspecified; G47.00 Insomnia, unspecified
CPT/HCPCS: 36415; 80053; 81003; 85027; 86780; 86803; 87811; C9803-CS; U0003; U0005

== ENCOUNTER 2022-09-19 11:41 | Inpatient (IN) | payer OTHER ==
[2022-09-19 12:54] VITALS: BMI 22.2
[2022-09-19] MEDS ORDERED: IBUPROFEN 400 MG TABLET (FP) PO PRN (15:54)
[2022-09-19] MEDS ORDERED: POLYETHYLENE GLYCOL (HEALTHYLAX) 3350 17 GM PACKET PO PRN (15:54)
[2022-09-19] MEDS ORDERED: LOPERAMIDE HCL 2 MG CAPSULE PO PRN (15:54)
[2022-09-19] MEDS ORDERED: BENZOCAINE/MENTHOL (CHLORASEPTIC ) LOZENGE MM PRN (15:54)
[2022-09-19] MEDS ORDERED: guaiFENesin 600 MG TABLET.ER (FP) PO PRN (15:54)
[2022-09-19] MEDS ORDERED: BISMUTH SUBSALICYLATE 524 MG/30 ML PO PRN (15:54)
[2022-09-19] MEDS ORDERED: ONDANSETRON *ODT* 4 MG TABLET SL PRN (15:54)
[2022-09-19] MEDS ORDERED: NALOXONE HCL 0.4 MG/ML VIAL IM PRN (15:54)
[2022-09-19] MEDS ORDERED: MAGNESIUM HYDROX 2400MG/30ML ORAL SUSPENSION 30 ML CUP PO PRN (15:54)
[2022-09-19] MEDS ORDERED: NICOTINE 10 MG CARTRIDGE (INHALER) IH PRN (15:54)
[2022-09-19] MEDS ORDERED: DICYCLOMINE HCL 10 MG CAPSULE PO PRN (15:54)
[2022-09-19] MEDS ORDERED: AMMONIUM LACTATE 12% LOTION 225 GM BOTTLE TP PRN (15:54)
[2022-09-19] MEDS ORDERED: BENZONATATE 200 MG CAPSULE PO PRN (15:54)
[2022-09-19] MEDS ORDERED: NALOXONE HCL (KLOXXADO) 8 MG SPRAY NS PRN (15:54)
[2022-09-19] MEDS ORDERED: COLLOIDAL OATMEAL 1 BAR EACH TP PRN (15:54)
[2022-09-19] MEDS ORDERED: MAG HYDROX/AL HYDROX/SIMETH 30 ML UNIT-DOSE CUP PO PRN (15:54)
[2022-09-19] MEDS: NICOTINE 21 MG/24 HOURS TOPICAL PATCH TD SCH (17:37)
[2022-09-19] MEDS: diazePAM 5 MG TABLET PO SCH ×2 (17:39→22:47)
[2022-09-19] MEDS: NICOTINE POLACRILEX 2 MG GUM BUC PRN ×2 (17:40→22:00)
[2022-09-19] MEDS: ACETAMINOPHEN 325 MG TABLET (FP) PO PRN (17:41)
[2022-09-19] MEDS: THIAMINE HCL 100 MG TABLET (FP) PO SCH (22:00)
[2022-09-19] MEDS ORDERED: MELATONIN 5 MG TABLETS PO SCH (22:00)
[2022-09-19] MEDS: METHOCARBAMOL 500 MG TABLET PO PRN (22:05)
[2022-09-20] MEDS: diazePAM 5 MG TABLET PO SCH ×4 (05:17→22:11)
[2022-09-20] MEDS: METHOCARBAMOL 500 MG TABLET PO PRN ×2 (05:20→15:07)
[2022-09-20] MEDS: ACETAMINOPHEN 325 MG TABLET (FP) PO PRN ×2 (05:20→17:23)
[2022-09-20] MEDS: NICOTINE POLACRILEX 2 MG GUM BUC PRN ×5 (05:32→22:14)
[2022-09-20 09:34] LABS: HEMATOCRIT 37.3 % (35.4-49); HEMOGLOBIN 12.4 GM/dL (11.7-16.9); MCH 27.8 pg (25.7-33.7); MCHC 33.2 g/dl (32.0-35.9); MEAN CELL VOLUME 83.7 fl (80-96); PLATELET COUNT 209 10^3/uL (134-434); RBC 4.45 M/mm3 (4.00-5.60); RDW 14.7 % (11.9-15.9); WHITE BLOOD COUNT 4.3 K/mm3 (4.0-10.0)
[2022-09-20 09:38] LABS: CHLORIDE 109 mmol/L (98-107); POTASSIUM 4.3 mmol/L (3.5-5.1); SODIUM 140 mmol/L (136-145)
[2022-09-20 09:45] LABS: CALCIUM 9.2 mg/dL (8.5-10.1)
[2022-09-20 09:46] LABS: ALBUMIN 3.3 g/dl (3.4-5.0); ANION GAP 2 MMOL/L (8-16); BLOOD UREA NITROGEN 9.1 mg/dL (7-18); CO2 29 mmol/L (21-32); GLUCOSE,RANDOM 68 mg/dL (74-106)
[2022-09-20 09:48] LABS: SGPT/ALT 18 U/L (13-61)
[2022-09-20 09:49] LABS: CREATININE 0.8 mg/dL (0.55-1.3); SGOT/AST < 3 U/L (15-37)
[2022-09-20 09:50] LABS: BILIRUBIN,TOTAL 0.6 mg/dL (0.2-1); TOT PROT 6.2 g/dl (6.4-8.2)
[2022-09-20 09:51] LABS: ALK PHOS 88 U/L (45-117)
[2022-09-20] MEDS: PRENATAL VITAMINS W/ FOLIC ACID TABLET (FP) PO SCH (10:10)
[2022-09-20] MEDS: busPIRone HCL 5 MG TABLET PO SCH ×2 (10:10→22:11)
[2022-09-20] MEDS: hydrOXYzine PAMOATE 25 MG CAPSULE (FP) PO PRN ×2 (10:11→17:25)
[2022-09-20] MEDS: NICOTINE 21 MG/24 HOURS TOPICAL PATCH TD SCH (10:11)
[2022-09-20] MEDS: IBUPROFEN 600 MG TABLET (FP) PO PRN (10:14)
[2022-09-20] MEDS ORDERED: methaDONE HCL 10 MG TABLET PO SCH (10:45)
[2022-09-20] MEDS ORDERED: SUVOREXANT 10 MG TABLET PO PRN (22:00)
[2022-09-20] MEDS: THIAMINE HCL 100 MG TABLET (FP) PO SCH (22:11)
[2022-09-21] MEDS: hydrOXYzine PAMOATE 25 MG CAPSULE (FP) PO PRN ×2 (05:51→13:38)
[2022-09-21] MEDS: diazePAM 5 MG TABLET PO SCH ×2 (05:51→13:39)
[2022-09-21] MEDS: ACETAMINOPHEN 325 MG TABLET (FP) PO PRN ×2 (05:51→17:25)
[2022-09-21] MEDS: NICOTINE 21 MG/24 HOURS TOPICAL PATCH TD SCH (10:08)
[2022-09-21] MEDS: busPIRone HCL 5 MG TABLET PO SCH (10:08)
[2022-09-21] MEDS: METHOCARBAMOL 500 MG TABLET PO PRN (10:08)
[2022-09-21] MEDS: PRENATAL VITAMINS W/ FOLIC ACID TABLET (FP) PO SCH (10:08)
[2022-09-21] MEDS: diazePAM 5 MG TABLET PO PRN ×2 (10:12→17:24)
[2022-09-21] MEDS: IBUPROFEN 600 MG TABLET (FP) PO PRN (12:25)
[2022-09-21] MEDS: NICOTINE POLACRILEX 2 MG GUM BC PRN ×3 (12:26→17:26)
[2022-09-21 13:06] VITALS: RESP 18
[2022-09-21 13:31] VITALS: BP 136/74; PULSE 81; TEMP 97.1
[2022-09-22] MEDS ORDERED: diazePAM 5 MG TABLET PO SCH (06:00)
[2022-09-23] MEDS ORDERED: diazePAM 5 MG TABLET PO ONE (06:00)
== END 2022-09-21 18:36 | disposition left against medical advice (07) | DRG 770 ==
LOC: YASAS 11:41 → Y6N 16:02
PROVIDERS: ADMIT Allergy & Immunology; ATTEND Surgery
PROC: HZ2ZZZZ Detoxification Services for Substance Abuse Treatment (ICD-10-PCS; principal; 2022-09-18)
DX: F11.23 Opioid dependence with withdrawal (principal); F14.20 Cocaine dependence, uncomplicated; F13.20 Sedative, hypnotic or anxiolytic dependence, uncomplicated; F12.20 Cannabis dependence, uncomplicated; F17.210 Nicotine dependence, cigarettes, uncomplicated; F19.282 Other psychoactive substance dependence with psychoactive substance-induced sleep disorder; F41.9 Anxiety disorder, unspecified; F32.A Depression, unspecified
CPT/HCPCS: 36415; 80053; 85027; 86780; C9803-CS; U0003; U0005

== ENCOUNTER 2022-10-03 14:07 | Inpatient (IN) | payer OTHER ==
[2022-10-03 14:29] VITALS: BMI 22.9
[2022-10-03] MEDS ORDERED: MAG HYDROX/AL HYDROX/SIMETH 30 ML UNIT-DOSE CUP PO PRN (17:10)
[2022-10-03] MEDS ORDERED: NALOXONE HCL (KLOXXADO) 8 MG SPRAY NS PRN (17:10)
[2022-10-03] MEDS ORDERED: BISMUTH SUBSALICYLATE 524 MG/30 ML PO PRN (17:10)
[2022-10-03] MEDS ORDERED: BENZONATATE 200 MG CAPSULE PO PRN (17:10)
[2022-10-03] MEDS ORDERED: ACETAMINOPHEN 325 MG TABLET (FP) PO PRN (17:10)
[2022-10-03] MEDS ORDERED: IBUPROFEN 600 MG TABLET (FP) PO PRN (17:10)
[2022-10-03] MEDS ORDERED: guaiFENesin 600 MG TABLET.ER (FP) PO PRN (17:10)
[2022-10-03] MEDS ORDERED: POLYETHYLENE GLYCOL (HEALTHYLAX) 3350 17 GM PACKET PO PRN (17:10)
[2022-10-03] MEDS ORDERED: MAGNESIUM HYDROX 2400MG/30ML ORAL SUSPENSION 30 ML CUP PO PRN (17:10)
[2022-10-03] MEDS ORDERED: LOPERAMIDE HCL 2 MG CAPSULE PO PRN (17:10)
[2022-10-03] MEDS ORDERED: IBUPROFEN 400 MG TABLET (FP) PO PRN (17:10)
[2022-10-03] MEDS ORDERED: NALOXONE HCL 0.4 MG/ML VIAL IM PRN (17:10)
[2022-10-03] MEDS ORDERED: BENZOCAINE/MENTHOL (CHLORASEPTIC ) LOZENGE MM PRN (17:10)
[2022-10-03] MEDS ORDERED: METHOCARBAMOL 500 MG TABLET PO PRN (17:10)
[2022-10-03] MEDS ORDERED: DICYCLOMINE HCL 10 MG CAPSULE PO PRN (17:10)
[2022-10-03] MEDS ORDERED: hydrOXYzine PAMOATE 25 MG CAPSULE (FP) PO PRN (17:10)
[2022-10-03] MEDS ORDERED: ONDANSETRON *ODT* 4 MG TABLET SL PRN (17:10)
[2022-10-03] MEDS ORDERED: P-EPHED 60MG/TRIPROLIDI 2.5MG TABLET PO PRN (17:10)
[2022-10-03] MEDS: diazePAM 5 MG TABLET PO PRN (19:08)
[2022-10-03] MEDS: diazePAM 5 MG TABLET PO SCH (22:11)
[2022-10-03] MEDS: MELATONIN 5 MG TABLETS PO SCH (22:11)
[2022-10-03] MEDS: THIAMINE HCL 100 MG TABLET (FP) PO SCH (22:12)
[2022-10-03] MEDS: NICOTINE POLACRILEX 4 MG GUM BUC PRN (22:13)
[2022-10-04] MEDS: NICOTINE POLACRILEX 4 MG GUM BUC PRN ×2 (05:43→10:21)
[2022-10-04] MEDS: diazePAM 5 MG TABLET PO SCH ×4 (05:43→22:08)
[2022-10-04] MEDS: PRENATAL VITAMINS W/ FOLIC ACID TABLET (FP) PO SCH (10:20)
[2022-10-04] MEDS: ACETAMINOPHEN 325 MG TABLET (FP) PO PRN (10:21)
[2022-10-04] MEDS: methaDONE HCL 10 MG TABLET PO SCH (11:57)
[2022-10-04] MEDS: NICOTINE 14 MG/24 HOURS TOPICAL PATCH TD SCH (19:15)
[2022-10-04 20:28] VITALS: RESP 18
[2022-10-04] MEDS: THIAMINE HCL 100 MG TABLET (FP) PO SCH (22:08)
[2022-10-04] MEDS: MELATONIN 5 MG TABLETS PO SCH (22:09)
[2022-10-05] MEDS: methaDONE HCL 10 MG TABLET PO SCH (05:22)
[2022-10-05] MEDS: ACETAMINOPHEN 325 MG TABLET (FP) PO PRN (05:24)
[2022-10-05] MEDS: NICOTINE POLACRILEX 4 MG GUM BUC PRN ×2 (05:30→09:55)
[2022-10-05] MEDS ORDERED: diazePAM 5 MG TABLET PO SCH (06:00)
[2022-10-05 09:47] VITALS: BP 123/57; PULSE 73; TEMP 97.3
[2022-10-05] MEDS: PRENATAL VITAMINS W/ FOLIC ACID TABLET (FP) PO SCH (09:53)
[2022-10-05] MEDS: NICOTINE 14 MG/24 HOURS TOPICAL PATCH TD SCH (09:54)
[2022-10-05] MEDS: diazePAM 5 MG TABLET PO PRN (09:55)
[2022-10-06] MEDS ORDERED: diazePAM 5 MG TABLET PO SCH (06:00)
[2022-10-07] MEDS ORDERED: diazePAM 5 MG TABLET PO ONE (06:00)
== END 2022-10-05 10:57 | disposition left against medical advice (07) | DRG 770 ==
LOC: YASAS 14:07 → Y6N 18:09
PROVIDERS: ADMIT Allergy & Immunology; ATTEND Surgery
PROC: HZ2ZZZZ Detoxification Services for Substance Abuse Treatment (ICD-10-PCS; principal; 2022-10-03)
DX: F13.230 Sedative, hypnotic or anxiolytic dependence with withdrawal, uncomplicated (principal); F11.20 Opioid dependence, uncomplicated; F14.20 Cocaine dependence, uncomplicated; F12.20 Cannabis dependence, uncomplicated; F17.290 Nicotine dependence, other tobacco product, uncomplicated
CPT/HCPCS: C9803-CS; U0003; U0005

== ENCOUNTER 2022-10-08 17:50 | Inpatient (IN) | payer OTHER ==
[2022-10-08 18:34] VITALS: BMI 21.2
[2022-10-08] MEDS ORDERED: IBUPROFEN 600 MG TABLET (FP) PO PRN (20:15)
[2022-10-08] MEDS ORDERED: BENZOCAINE/MENTHOL (CHLORASEPTIC ) LOZENGE MM PRN (20:15)
[2022-10-08] MEDS ORDERED: IBUPROFEN 400 MG TABLET (FP) PO PRN (20:15)
[2022-10-08] MEDS ORDERED: BISMUTH SUBSALICYLATE 524 MG/30 ML PO PRN (20:15)
[2022-10-08] MEDS ORDERED: NALOXONE HCL 0.4 MG/ML VIAL IM PRN (20:15)
[2022-10-08] MEDS ORDERED: P-EPHED 60MG/TRIPROLIDI 2.5MG TABLET PO PRN (20:15)
[2022-10-08] MEDS ORDERED: ACETAMINOPHEN 325 MG TABLET (FP) PO PRN (20:15)
[2022-10-08] MEDS ORDERED: LOPERAMIDE HCL 2 MG CAPSULE PO PRN (20:15)
[2022-10-08] MEDS ORDERED: MAGNESIUM HYDROX 2400MG/30ML ORAL SUSPENSION 30 ML CUP PO PRN (20:15)
[2022-10-08] MEDS ORDERED: DICYCLOMINE HCL 10 MG CAPSULE PO PRN (20:15)
[2022-10-08] MEDS ORDERED: POLYETHYLENE GLYCOL (HEALTHYLAX) 3350 17 GM PACKET PO PRN (20:15)
[2022-10-08] MEDS ORDERED: NALOXONE HCL (KLOXXADO) 8 MG SPRAY NS PRN (20:15)
[2022-10-08] MEDS ORDERED: ONDANSETRON *ODT* 4 MG TABLET SL PRN (20:15)
[2022-10-08] MEDS ORDERED: MAG HYDROX/AL HYDROX/SIMETH 30 ML UNIT-DOSE CUP PO PRN (20:15)
[2022-10-08] MEDS ORDERED: BENZONATATE 200 MG CAPSULE PO PRN (20:15)
[2022-10-08] MEDS ORDERED: guaiFENesin 600 MG TABLET.ER (FP) PO PRN (20:15)
[2022-10-08] MEDS ORDERED: MELATONIN 5 MG TABLETS PO SCH (22:00)
[2022-10-08] MEDS: NICOTINE POLACRILEX 4 MG GUM BUC PRN (22:42)
[2022-10-08] MEDS: THIAMINE HCL 100 MG TABLET (FP) PO SCH (22:47)
[2022-10-08] MEDS: levETIRAcetam 250 MG TABLET PO SCH (22:47)
[2022-10-08] MEDS: METHOCARBAMOL 500 MG TABLET PO PRN (22:47)
[2022-10-08] MEDS: hydrOXYzine PAMOATE 25 MG CAPSULE (FP) PO PRN (22:47)
[2022-10-08] MEDS: diazePAM 5 MG TABLET PO PRN (22:48)
[2022-10-09] MEDS: diazePAM 5 MG TABLET PO SCH ×4 (05:34→22:23)
[2022-10-09] MEDS: METHOCARBAMOL 500 MG TABLET PO PRN ×3 (05:36→20:19)
[2022-10-09] MEDS: hydrOXYzine PAMOATE 25 MG CAPSULE (FP) PO PRN ×3 (05:36→22:24)
[2022-10-09] MEDS: NICOTINE POLACRILEX 4 MG GUM BUC PRN ×6 (05:37→22:26)
[2022-10-09] MEDS: diazePAM 5 MG TABLET PO PRN ×2 (08:53→20:19)
[2022-10-09] MEDS: methaDONE HCL 10 MG TABLET PO SCH (09:33)
[2022-10-09] MEDS: PRENATAL VITAMINS W/ FOLIC ACID TABLET (FP) PO SCH (09:33)
[2022-10-09] MEDS: NICOTINE 21 MG/24 HOURS TOPICAL PATCH TD SCH (09:33)
[2022-10-09] MEDS: levETIRAcetam 250 MG TABLET PO SCH ×2 (09:33→22:24)
[2022-10-09] MEDS ORDERED: SUVOREXANT 10 MG TABLET PO PRN (22:00)
[2022-10-09] MEDS: THIAMINE HCL 100 MG TABLET (FP) PO SCH (22:24)
[2022-10-10] MEDS: diazePAM 5 MG TABLET PO SCH ×2 (05:05→14:04)
[2022-10-10] MEDS: hydrOXYzine PAMOATE 25 MG CAPSULE (FP) PO PRN ×2 (05:05→16:36)
[2022-10-10] MEDS: METHOCARBAMOL 500 MG TABLET PO PRN ×2 (05:05→14:07)
[2022-10-10] MEDS: methaDONE HCL 10 MG TABLET PO SCH (05:06)
[2022-10-10] MEDS: levETIRAcetam 250 MG TABLET PO SCH (09:56)
[2022-10-10] MEDS: diazePAM 5 MG TABLET PO PRN ×2 (09:56→16:36)
[2022-10-10] MEDS: PRENATAL VITAMINS W/ FOLIC ACID TABLET (FP) PO SCH (09:57)
[2022-10-10] MEDS: NICOTINE 21 MG/24 HOURS TOPICAL PATCH TD SCH (09:57)
[2022-10-10] MEDS: NICOTINE POLACRILEX 4 MG GUM BUC PRN ×3 (09:58→16:37)
[2022-10-10 18:54] VITALS: BP 132/51; PULSE 66; RESP 20; TEMP 98.9
[2022-10-11] MEDS ORDERED: diazePAM 5 MG TABLET PO SCH (06:00)
[2022-10-12] MEDS ORDERED: diazePAM 5 MG TABLET PO ONE (06:00)
== END 2022-10-10 18:46 | disposition left against medical advice (07) | DRG 770 ==
LOC: YASAS 17:50 → Y3N 20:24
PROVIDERS: ADMIT Allergy & Immunology; ATTEND Surgery
PROC: HZ2ZZZZ Detoxification Services for Substance Abuse Treatment (ICD-10-PCS; principal; 2022-10-08)
DX: F11.23 Opioid dependence with withdrawal (principal); F13.20 Sedative, hypnotic or anxiolytic dependence, uncomplicated; F14.20 Cocaine dependence, uncomplicated; F10.10 Alcohol abuse, uncomplicated; F17.290 Nicotine dependence, other tobacco product, uncomplicated; F19.24 Other psychoactive substance dependence with psychoactive substance-induced mood disorder; G47.00 Insomnia, unspecified
CPT/HCPCS: 87635

== ENCOUNTER 2022-10-12 10:54 | Inpatient (IN) | payer OTHER ==
[2022-10-12 11:53] VITALS: BMI 21.8
[2022-10-12] MEDS ORDERED: cloNIDine HCL 0.1 MG TABLET PO ONE (14:23)
[2022-10-12] MEDS ORDERED: cloNIDine HCL 0.1 MG TABLET ONE (14:30)
[2022-10-12] MEDS ORDERED: NALOXONE HCL 0.4 MG/ML VIAL IM PRN (14:43)
[2022-10-12] MEDS ORDERED: MAGNESIUM HYDROX 2400MG/30ML ORAL SUSPENSION 30 ML CUP PO PRN (14:43)
[2022-10-12] MEDS ORDERED: BISMUTH SUBSALICYLATE 524 MG/30 ML PO PRN (14:43)
[2022-10-12] MEDS ORDERED: POLYETHYLENE GLYCOL (HEALTHYLAX) 3350 17 GM PACKET PO PRN (14:43)
[2022-10-12] MEDS ORDERED: DICYCLOMINE HCL 10 MG CAPSULE PO PRN (14:43)
[2022-10-12] MEDS ORDERED: ONDANSETRON *ODT* 4 MG TABLET SL PRN (14:43)
[2022-10-12] MEDS ORDERED: LOPERAMIDE HCL 2 MG CAPSULE PO PRN (14:43)
[2022-10-12] MEDS ORDERED: guaiFENesin 600 MG TABLET.ER (FP) PO PRN (14:43)
[2022-10-12] MEDS ORDERED: MAG HYDROX/AL HYDROX/SIMETH 30 ML UNIT-DOSE CUP PO PRN (14:43)
[2022-10-12] MEDS ORDERED: NALOXONE HCL (KLOXXADO) 8 MG SPRAY NS PRN (14:43)
[2022-10-12] MEDS ORDERED: BENZOCAINE/MENTHOL (CHLORASEPTIC ) LOZENGE MM PRN (14:43)
[2022-10-12] MEDS ORDERED: BENZONATATE 200 MG CAPSULE PO PRN (14:43)
[2022-10-12] MEDS: METHOCARBAMOL 500 MG TABLET PO PRN ×2 (15:19→21:31)
[2022-10-12] MEDS: hydrOXYzine PAMOATE 25 MG CAPSULE (FP) PO PRN (15:19)
[2022-10-12] MEDS: NICOTINE 21 MG/24 HOURS TOPICAL PATCH TD SCH (15:19)
[2022-10-12] MEDS: IBUPROFEN 600 MG TABLET (FP) PO PRN (15:19)
[2022-10-12] MEDS: NICOTINE POLACRILEX 4 MG GUM BUC PRN ×3 (15:20→22:27)
[2022-10-12] MEDS: diazePAM 5 MG TABLET PO PRN ×2 (17:00→22:25)
[2022-10-12] MEDS: diazePAM 5 MG TABLET PO SCH ×2 (17:01→23:33)
[2022-10-12] MEDS: IBUPROFEN 400 MG TABLET (FP) PO PRN (19:44)
[2022-10-12] MEDS: ACETAMINOPHEN 325 MG TABLET (FP) PO PRN (20:37)
[2022-10-12] MEDS: cloNIDine HCL 0.1 MG TABLET PO SCH (21:31)
[2022-10-12] MEDS: THIAMINE HCL 100 MG TABLET (FP) PO SCH (21:31)
[2022-10-12] MEDS ORDERED: MELATONIN 5 MG TABLETS PO SCH (22:00)
[2022-10-13] MEDS: hydrOXYzine PAMOATE 25 MG CAPSULE (FP) PO PRN ×3 (00:50→17:26)
[2022-10-13] MEDS: IBUPROFEN 400 MG TABLET (FP) PO PRN (00:50)
[2022-10-13] MEDS: diazePAM 5 MG TABLET PO SCH ×4 (05:21→22:04)
[2022-10-13] MEDS: METHOCARBAMOL 500 MG TABLET PO PRN ×3 (05:21→22:04)
[2022-10-13] MEDS: NICOTINE POLACRILEX 4 MG GUM BUC PRN ×6 (05:23→22:06)
[2022-10-13] MEDS: PRENATAL VITAMINS W/ FOLIC ACID TABLET (FP) PO SCH (09:12)
[2022-10-13] MEDS: methaDONE HCL 10 MG TABLET PO SCH (09:12)
[2022-10-13] MEDS: cloNIDine HCL 0.1 MG TABLET PO SCH ×2 (09:12→22:03)
[2022-10-13] MEDS: NICOTINE 21 MG/24 HOURS TOPICAL PATCH TD SCH (09:13)
[2022-10-13 10:53] LABS: POTASSIUM 4.4 mmol/L (3.5-5.1)
[2022-10-13 10:55] LABS: CALCIUM 9.1 mg/dL (8.5-10.1)
[2022-10-13 10:56] LABS: ALBUMIN 3.3 g/dl (3.4-5.0); BLOOD UREA NITROGEN 15.9 mg/dL (7-18); HEMATOCRIT 37.3 % (35.4-49); HEMOGLOBIN 11.8 GM/dL (11.7-16.9); MCH 27.2 pg (25.7-33.7); MCHC 31.8 g/dl (32.0-35.9); MEAN CELL VOLUME 85.6 fl (80-96); MEAN PLT VOLUME 8.6 fl (7.5-11.1); PLATELET COUNT 195 10^3/uL (134-434); RBC 4.35 M/mm3 (4.00-5.60); WHITE BLOOD COUNT 5.1 K/mm3 (4.0-10.0)
[2022-10-13 10:59] LABS: CREATININE 0.8 mg/dL (0.55-1.3)
[2022-10-13 11:01] LABS: BILIRUBIN,TOTAL 0.3 mg/dL (0.2-1); TOT PROT 6.2 g/dl (6.4-8.2)
[2022-10-13] MEDS ORDERED: PNEUMOC 20-VAL CONJ-DIP CRM/PF 0.5 ML SYRINGE IM ONE (12:00)
[2022-10-13] MEDS: ACETAMINOPHEN 325 MG TABLET (FP) PO PRN (13:34)
[2022-10-13] MEDS: diazePAM 5 MG TABLET PO PRN ×2 (13:35→19:33)
[2022-10-13] MEDS: THIAMINE HCL 100 MG TABLET (FP) PO SCH (22:03)
[2022-10-13] MEDS: SUVOREXANT 10 MG TABLET PO PRN (22:04)
[2022-10-14] MEDS: methaDONE HCL 10 MG TABLET PO SCH (05:25)
[2022-10-14] MEDS: diazePAM 5 MG TABLET PO SCH ×3 (05:25→22:04)
[2022-10-14] MEDS: NICOTINE POLACRILEX 4 MG GUM BUC PRN ×6 (05:30→22:06)
[2022-10-14] MEDS: ACETAMINOPHEN 325 MG TABLET (FP) PO PRN ×2 (05:37→19:30)
[2022-10-14] MEDS: METHOCARBAMOL 500 MG TABLET PO PRN ×3 (05:37→22:05)
[2022-10-14] MEDS: hydrOXYzine PAMOATE 25 MG CAPSULE (FP) PO PRN ×2 (09:51→19:29)
[2022-10-14] MEDS: cloNIDine HCL 0.1 MG TABLET PO SCH (09:51)
[2022-10-14] MEDS: NICOTINE 21 MG/24 HOURS TOPICAL PATCH TD SCH (09:51)
[2022-10-14] MEDS: diazePAM 5 MG TABLET PO PRN ×2 (09:52→17:22)
[2022-10-14] MEDS: PRENATAL VITAMINS W/ FOLIC ACID TABLET (FP) PO SCH (10:05)
[2022-10-14] MEDS: THIAMINE HCL 100 MG TABLET (FP) PO SCH (22:04)
[2022-10-14] MEDS: IBUPROFEN 600 MG TABLET (FP) PO PRN (22:07)
[2022-10-14] MEDS: SUVOREXANT 10 MG TABLET PO PRN (22:08)
[2022-10-15] MEDS: METHOCARBAMOL 500 MG TABLET PO PRN ×3 (05:15→22:02)
[2022-10-15] MEDS: hydrOXYzine PAMOATE 25 MG CAPSULE (FP) PO PRN ×2 (05:15→13:17)
[2022-10-15] MEDS: diazePAM 5 MG TABLET PO SCH ×2 (05:16→17:11)
[2022-10-15] MEDS: methaDONE HCL 10 MG TABLET PO SCH (05:16)
[2022-10-15] MEDS: ACETAMINOPHEN 325 MG TABLET (FP) PO PRN (07:24)
[2022-10-15] MEDS: NICOTINE 21 MG/24 HOURS TOPICAL PATCH TD SCH (10:11)
[2022-10-15] MEDS: diazePAM 5 MG TABLET PO PRN (10:12)
[2022-10-15] MEDS: PRENATAL VITAMINS W/ FOLIC ACID TABLET (FP) PO SCH (10:12)
[2022-10-15] MEDS: NICOTINE POLACRILEX 4 MG GUM BUC PRN ×4 (10:13→22:03)
[2022-10-15] MEDS: NICOTINE 10 MG CARTRIDGE (INHALER) IH PRN ×2 (17:04→22:03)
[2022-10-15] MEDS: hydrOXYzine PAMOATE 50 MG CAPSULE (FP) PO PRN ×2 (17:10→22:02)
[2022-10-15] MEDS: IBUPROFEN 600 MG TABLET (FP) PO PRN (17:10)
[2022-10-15] MEDS ORDERED: SUVOREXANT 15 MG TABLET PO PRN (22:00)
[2022-10-15] MEDS: THIAMINE HCL 100 MG TABLET (FP) PO SCH (22:02)
[2022-10-16] MEDS: methaDONE HCL 10 MG TABLET PO SCH (05:10)
[2022-10-16] MEDS: hydrOXYzine PAMOATE 50 MG CAPSULE (FP) PO PRN ×2 (05:11→10:15)
[2022-10-16] MEDS: METHOCARBAMOL 500 MG TABLET PO PRN (05:11)
[2022-10-16] MEDS: NICOTINE POLACRILEX 4 MG GUM BUC PRN ×2 (05:13→10:17)
[2022-10-16] MEDS ORDERED: diazePAM 5 MG TABLET PO ONE (06:00)
[2022-10-16 08:53] VITALS: BP 115/56; PULSE 84; RESP 18; TEMP 97.8
[2022-10-16] MEDS: PRENATAL VITAMINS W/ FOLIC ACID TABLET (FP) PO SCH (10:13)
[2022-10-16] MEDS: ACETAMINOPHEN 325 MG TABLET (FP) PO PRN (10:15)
[2022-10-16] MEDS: NICOTINE 21 MG/24 HOURS TOPICAL PATCH TD SCH (10:59)
== END 2022-10-16 10:40 | disposition home or self-care (01) | DRG 773 ==
LOC: YASAS 10:54 → Y6N 14:41
PROVIDERS: ADMIT Allergy & Immunology; ATTEND Surgery
PROC: HZ2ZZZZ Detoxification Services for Substance Abuse Treatment (ICD-10-PCS; principal; 2022-10-12)
DX: F13.230 Sedative, hypnotic or anxiolytic dependence with withdrawal, uncomplicated (principal); F11.20 Opioid dependence, uncomplicated; F14.20 Cocaine dependence, uncomplicated; F12.20 Cannabis dependence, uncomplicated; F17.210 Nicotine dependence, cigarettes, uncomplicated; F19.282 Other psychoactive substance dependence with psychoactive substance-induced sleep disorder; F19.280 Other psychoactive substance dependence with psychoactive substance-induced anxiety disorder; F19.24 Other psychoactive substance dependence with psychoactive substance-induced mood disorder; W19.XXXA Unspecified fall, initial encounter; Y92.238 Other place in hospital as the place of occurrence of the external cause
CPT/HCPCS: 36415; 80053; 85027; 86780; 87635; 87811; 90677

== ENCOUNTER 2022-12-12 12:08 | Inpatient (IN) | payer OTHER ==
[2022-12-12 13:39] VITALS: BMI 19.2
[2022-12-12] MEDS ORDERED: BENZOCAINE/MENTHOL (CHLORASEPTIC ) LOZENGE MM PRN (14:08)
[2022-12-12] MEDS ORDERED: BENZONATATE 200 MG CAPSULE PO PRN (14:08)
[2022-12-12] MEDS ORDERED: NALOXONE HCL (KLOXXADO) 8 MG SPRAY NS PRN (14:08)
[2022-12-12] MEDS ORDERED: LOPERAMIDE HCL 2 MG CAPSULE PO PRN (14:08)
[2022-12-12] MEDS ORDERED: P-EPHED 60MG/TRIPROLIDI 2.5MG TABLET PO PRN (14:08)
[2022-12-12] MEDS ORDERED: ACETAMINOPHEN 325 MG TABLET (FP) PO PRN (14:08)
[2022-12-12] MEDS ORDERED: IBUPROFEN 600 MG TABLET (FP) PO PRN (14:08)
[2022-12-12] MEDS ORDERED: POLYETHYLENE GLYCOL (HEALTHYLAX) 3350 17 GM PACKET PO PRN (14:08)
[2022-12-12] MEDS ORDERED: hydrOXYzine PAMOATE 25 MG CAPSULE (FP) PO PRN (14:08)
[2022-12-12] MEDS ORDERED: MAG HYDROX/AL HYDROX/SIMETH 30 ML UNIT-DOSE CUP PO PRN (14:08)
[2022-12-12] MEDS ORDERED: MAGNESIUM HYDROX 2400MG/30ML ORAL SUSPENSION 30 ML CUP PO PRN (14:08)
[2022-12-12] MEDS ORDERED: ONDANSETRON *ODT* 4 MG TABLET SL PRN (14:08)
[2022-12-12] MEDS ORDERED: guaiFENesin 600 MG TABLET.ER (FP) PO PRN (14:08)
[2022-12-12] MEDS ORDERED: DICYCLOMINE HCL 10 MG CAPSULE PO PRN (14:08)
[2022-12-12] MEDS ORDERED: BISMUTH SUBSALICYLATE 262 MG/15 ML BTL PO PRN (14:08)
[2022-12-12] MEDS ORDERED: NALOXONE HCL 0.4 MG/ML VIAL IM PRN (14:08)
[2022-12-12] MEDS ORDERED: IBUPROFEN 400 MG TABLET (FP) PO PRN (14:08)
[2022-12-12] MEDS: diazePAM 5 MG TABLET PO SCH ×2 (17:29→23:56)
[2022-12-12] MEDS: NICOTINE POLACRILEX 2 MG GUM BUC PRN ×2 (17:32→20:38)
[2022-12-12] MEDS: diazePAM 5 MG TABLET PO PRN (20:37)
[2022-12-12] MEDS: MELATONIN 5 MG TABLETS PO SCH (22:35)
[2022-12-12] MEDS: THIAMINE HCL 100 MG TABLET (FP) PO SCH (22:35)
[2022-12-12] MEDS: METHOCARBAMOL 500 MG TABLET PO PRN (22:36)
[2022-12-13] MEDS: METHOCARBAMOL 500 MG TABLET PO PRN ×2 (05:50→17:00)
[2022-12-13] MEDS: diazePAM 5 MG TABLET PO SCH ×4 (05:50→23:19)
[2022-12-13] MEDS: NICOTINE POLACRILEX 2 MG GUM BUC PRN ×5 (05:51→23:20)
[2022-12-13] MEDS: PRENATAL VITAMINS W/ FOLIC ACID TABLET (FP) PO SCH (10:13)
[2022-12-13] MEDS: methaDONE HCL 10 MG TABLET PO SCH (10:14)
[2022-12-13] MEDS: diazePAM 5 MG TABLET PO PRN ×2 (13:41→20:20)
[2022-12-13 13:57] LABS: HEMATOCRIT 37.5 % (35.4-49); HEMOGLOBIN 12.1 GM/dL (11.7-16.9); MCH 27.8 pg (25.7-33.7); MCHC 32.3 g/dl (32.0-35.9); MEAN PLT VOLUME 9.1 fl (7.5-11.1); PLATELET COUNT 192 10^3/uL (134-434); RBC 4.35 M/mm3 (4.00-5.60); RDW 15.2 % (11.9-15.9); WHITE BLOOD COUNT 4.6 K/mm3 (4.0-10.0)
[2022-12-13 14:02] LABS: POTASSIUM 4.8 mmol/L (3.5-5.1)
[2022-12-13 14:15] LABS: CALCIUM 9.1 mg/dL (8.5-10.1)
[2022-12-13 14:17] LABS: ALBUMIN 3.3 g/dl (3.4-5.0); BLOOD UREA NITROGEN 11.7 mg/dL (7-18)
[2022-12-13 14:18] LABS: CREATININE 0.9 mg/dL (0.55-1.3)
[2022-12-13 14:20] LABS: BILIRUBIN,TOTAL 0.2 mg/dL (0.2-1); TOT PROT 5.8 g/dl (6.4-8.2)
[2022-12-13] MEDS: THIAMINE HCL 100 MG TABLET (FP) PO SCH (22:52)
[2022-12-13] MEDS: MELATONIN 5 MG TABLETS PO SCH (22:52)
[2022-12-14] MEDS: diazePAM 5 MG TABLET PO SCH ×3 (05:37→22:02)
[2022-12-14] MEDS: methaDONE HCL 10 MG TABLET PO SCH (05:37)
[2022-12-14] MEDS: NICOTINE POLACRILEX 2 MG GUM BUC PRN ×3 (05:42→22:02)
[2022-12-14] MEDS: METHOCARBAMOL 500 MG TABLET PO PRN ×3 (05:43→22:00)
[2022-12-14] MEDS: PRENATAL VITAMINS W/ FOLIC ACID TABLET (FP) PO SCH (10:19)
[2022-12-14] MEDS: diazePAM 5 MG TABLET PO PRN ×2 (10:19→17:09)
[2022-12-14 20:58] VITALS: RESP 18; TEMP 97.7
[2022-12-14] MEDS: THIAMINE HCL 100 MG TABLET (FP) PO SCH (22:00)
[2022-12-14] MEDS: MELATONIN 5 MG TABLETS PO SCH (22:00)
[2022-12-15] MEDS: diazePAM 5 MG TABLET PO PRN (01:42)
[2022-12-15] MEDS: NICOTINE POLACRILEX 2 MG GUM BUC PRN ×3 (01:43→09:04)
[2022-12-15] MEDS: methaDONE HCL 10 MG TABLET PO SCH (05:23)
[2022-12-15] MEDS ORDERED: diazePAM 5 MG TABLET PO SCH (06:00)
[2022-12-15 09:20] VITALS: BP 136/97; PULSE 66
[2022-12-15] MEDS: PRENATAL VITAMINS W/ FOLIC ACID TABLET (FP) PO SCH (10:14)
[2022-12-16] MEDS ORDERED: diazePAM 5 MG TABLET PO ONE (06:00)
== END 2022-12-15 09:46 | disposition home or self-care (01) | DRG 773 ==
LOC: YASAS 12:08 → Y6N 14:56
PROVIDERS: ADMIT Allergy & Immunology; ATTEND Surgery
PROC: HZ2ZZZZ Detoxification Services for Substance Abuse Treatment (ICD-10-PCS; principal; 2022-12-12)
DX: F13.230 Sedative, hypnotic or anxiolytic dependence with withdrawal, uncomplicated (principal); F11.20 Opioid dependence, uncomplicated; F14.20 Cocaine dependence, uncomplicated; F12.20 Cannabis dependence, uncomplicated; F17.210 Nicotine dependence, cigarettes, uncomplicated; Z86.69 Personal history of other diseases of the nervous system and sense organs
CPT/HCPCS: 36415; 80053; 85027; 86780; 87635; 87811; 93005; 93010

== ENCOUNTER 2023-02-23 15:50 | Inpatient (IN) | payer OTHER ==
[2023-02-23 17:01] VITALS: BMI 20.9
[2023-02-23] MEDS ORDERED: MAGNESIUM HYDROX 2400MG/30ML ORAL SUSPENSION 30 ML CUP PO PRN (17:28)
[2023-02-23] MEDS ORDERED: BENZOCAINE/MENTHOL (CHLORASEPTIC ) LOZENGE MM PRN (17:28)
[2023-02-23] MEDS ORDERED: IBUPROFEN 400 MG TABLET (FP) PO PRN (17:28)
[2023-02-23] MEDS ORDERED: NALOXONE HCL (KLOXXADO) 8 MG SPRAY NS PRN (17:28)
[2023-02-23] MEDS ORDERED: LOPERAMIDE HCL 2 MG CAPSULE PO PRN (17:28)
[2023-02-23] MEDS ORDERED: NALOXONE HCL 0.4 MG/ML VIAL IM PRN (17:28)
[2023-02-23] MEDS ORDERED: BENZONATATE 200 MG CAPSULE PO PRN (17:28)
[2023-02-23] MEDS ORDERED: DICYCLOMINE HCL 10 MG CAPSULE PO PRN (17:28)
[2023-02-23] MEDS ORDERED: ONDANSETRON *ODT* 4 MG TABLET SL PRN (17:28)
[2023-02-23] MEDS ORDERED: guaiFENesin 600 MG TABLET.ER (FP) PO PRN (17:28)
[2023-02-23] MEDS ORDERED: BISMUTH SUBSALICYLATE 524 MG/30 ML PO PRN (17:28)
[2023-02-23] MEDS ORDERED: POLYETHYLENE GLYCOL (HEALTHYLAX) 3350 17 GM PACKET PO PRN (17:28)
[2023-02-23] MEDS ORDERED: MAG HYDROX/AL HYDROX/SIMETH 30 ML UNIT-DOSE CUP PO PRN (17:28)
[2023-02-23] MEDS ORDERED: P-EPHED 60MG/TRIPROLIDI 2.5MG TABLET PO PRN (17:28)
[2023-02-23] MEDS: NICOTINE POLACRILEX 4 MG GUM BUC PRN ×2 (19:30→22:21)
[2023-02-23] MEDS: METHOCARBAMOL 500 MG TABLET PO PRN (20:12)
[2023-02-23] MEDS: hydrOXYzine PAMOATE 25 MG CAPSULE (FP) PO PRN (20:12)
[2023-02-23] MEDS: THIAMINE HCL 100 MG TABLET (FP) PO SCH (22:04)
[2023-02-23] MEDS: MELATONIN 5 MG TABLETS PO SCH (22:04)
[2023-02-23] MEDS: IBUPROFEN 600 MG TABLET (FP) PO PRN (22:06)
[2023-02-24] MEDS: hydrOXYzine PAMOATE 25 MG CAPSULE (FP) PO PRN ×2 (08:30→22:40)
[2023-02-24] MEDS: NICOTINE POLACRILEX 4 MG GUM BUC PRN ×6 (08:30→22:42)
[2023-02-24] MEDS ORDERED: methaDONE HCL 10 MG TABLET PO SCH (09:15)
[2023-02-24] MEDS: PRENATAL VITAMINS W/ FOLIC ACID TABLET (FP) PO SCH (09:58)
[2023-02-24] MEDS: METHOCARBAMOL 500 MG TABLET PO PRN ×2 (09:58→22:40)
[2023-02-24] MEDS: NICOTINE 21 MG/24 HOURS TOPICAL PATCH TD SCH (09:59)
[2023-02-24] MEDS: diazePAM 5 MG TABLET PO SCH ×3 (10:01→23:03)
[2023-02-24 11:22] LABS: HEMATOCRIT 39.3 % (35.4-49); HEMOGLOBIN 12.8 GM/dL (11.7-16.9); MCH 28.3 pg (25.7-33.7); MCHC 32.5 g/dl (32.0-35.9); MEAN CELL VOLUME 87.1 fl (80-96); MEAN PLT VOLUME 8.7 fl (7.5-11.1); PLATELET COUNT 276 10^3/uL (134-434); RBC 4.52 M/mm3 (4.00-5.60); RDW 14.5 % (11.9-15.9); WHITE BLOOD COUNT 5.3 K/mm3 (4.0-10.0)
[2023-02-24 12:00] LABS: POTASSIUM 4.5 mmol/L (3.5-5.1)
[2023-02-24 12:17] LABS: ALBUMIN 3.5 g/dl (3.4-5.0); CALCIUM 8.9 mg/dL (8.5-10.1)
[2023-02-24 12:19] LABS: BLOOD UREA NITROGEN 14.1 mg/dL (7-18)
[2023-02-24 12:21] LABS: CREATININE 0.9 mg/dL (0.55-1.3)
[2023-02-24 12:22] LABS: BILIRUBIN,TOTAL 0.1 mg/dL (0.2-1); TOT PROT 6.9 g/dl (6.4-8.2)
[2023-02-24] MEDS: ACETAMINOPHEN 325 MG TABLET (FP) PO PRN (14:03)
[2023-02-24] MEDS: diazePAM 5 MG TABLET PO PRN ×2 (14:04→20:10)
[2023-02-24] MEDS: IBUPROFEN 600 MG TABLET (FP) PO PRN (17:34)
[2023-02-24] MEDS: MELATONIN 5 MG TABLETS PO SCH (22:38)
[2023-02-24] MEDS: THIAMINE HCL 100 MG TABLET (FP) PO SCH (22:38)
[2023-02-24] MEDS: traZODone HCL 50 MG TABLET (FP) PO SCH (22:41)
[2023-02-25] MEDS: diazePAM 5 MG TABLET PO SCH ×4 (05:19→23:05)
[2023-02-25] MEDS: NICOTINE POLACRILEX 4 MG GUM BUC PRN ×6 (05:22→23:07)
[2023-02-25] MEDS: PRENATAL VITAMINS W/ FOLIC ACID TABLET (FP) PO SCH (10:00)
[2023-02-25] MEDS: NICOTINE 21 MG/24 HOURS TOPICAL PATCH TD SCH (10:00)
[2023-02-25] MEDS: hydrOXYzine PAMOATE 25 MG CAPSULE (FP) PO PRN ×2 (10:02→19:15)
[2023-02-25] MEDS: METHOCARBAMOL 500 MG TABLET PO PRN ×2 (10:02→19:15)
[2023-02-25] MEDS: cloNIDine HCL 0.1 MG TABLET PO PRN (10:06)
[2023-02-25] MEDS: IBUPROFEN 600 MG TABLET (FP) PO PRN (10:07)
[2023-02-25] MEDS: diazePAM 5 MG TABLET PO PRN ×2 (14:10→20:45)
[2023-02-25] MEDS: ACETAMINOPHEN 325 MG TABLET (FP) PO PRN (14:13)
[2023-02-25] MEDS: THIAMINE HCL 100 MG TABLET (FP) PO SCH (22:05)
[2023-02-25] MEDS: traZODone HCL 50 MG TABLET (FP) PO SCH (22:05)
[2023-02-25] MEDS: MELATONIN 5 MG TABLETS PO SCH (23:07)
[2023-02-26] MEDS: diazePAM 5 MG TABLET PO SCH ×3 (05:26→22:25)
[2023-02-26] MEDS: METHOCARBAMOL 500 MG TABLET PO PRN ×3 (05:27→17:24)
[2023-02-26] MEDS: NICOTINE POLACRILEX 4 MG GUM BUC PRN ×6 (05:29→22:25)
[2023-02-26] MEDS: NICOTINE 21 MG/24 HOURS TOPICAL PATCH TD SCH (10:03)
[2023-02-26] MEDS: PRENATAL VITAMINS W/ FOLIC ACID TABLET (FP) PO SCH (10:04)
[2023-02-26] MEDS: diazePAM 5 MG TABLET PO PRN ×2 (10:05→18:53)
[2023-02-26] MEDS: hydrOXYzine PAMOATE 25 MG CAPSULE (FP) PO PRN ×2 (10:05→17:24)
[2023-02-26] MEDS: cloNIDine HCL 0.1 MG TABLET PO PRN (10:05)
[2023-02-26] MEDS: IBUPROFEN 600 MG TABLET (FP) PO PRN (14:27)
[2023-02-26] MEDS: THIAMINE HCL 100 MG TABLET (FP) PO SCH (22:25)
[2023-02-26] MEDS: MELATONIN 5 MG TABLETS PO SCH (22:25)
[2023-02-26] MEDS: traZODone HCL 50 MG TABLET (FP) PO SCH (22:25)
[2023-02-27] MEDS: hydrOXYzine PAMOATE 25 MG CAPSULE (FP) PO PRN (05:30)
[2023-02-27] MEDS: NICOTINE POLACRILEX 4 MG GUM BUC PRN (05:33)
[2023-02-27] MEDS ORDERED: diazePAM 5 MG TABLET PO SCH (06:00)
[2023-02-27 06:33] VITALS: RESP 18
[2023-02-27] MEDS: PRENATAL VITAMINS W/ FOLIC ACID TABLET (FP) PO SCH (09:09)
[2023-02-27] MEDS: NICOTINE 21 MG/24 HOURS TOPICAL PATCH TD SCH (09:09)
[2023-02-27 12:29] VITALS: BP 133/56; PULSE 78; TEMP 98.6
[2023-02-28] MEDS ORDERED: diazePAM 5 MG TABLET PO ONE (06:00)
== END 2023-02-27 13:23 | disposition left against medical advice (07) | DRG 770 ==
LOC: YASAS 15:50 → Y6N 19:38
PROVIDERS: ADMIT Allergy & Immunology; ATTEND Surgery
PROC: HZ2ZZZZ Detoxification Services for Substance Abuse Treatment (ICD-10-PCS; principal; 2023-02-23)
DX: F13.230 Sedative, hypnotic or anxiolytic dependence with withdrawal, uncomplicated (principal); F11.20 Opioid dependence, uncomplicated; F14.20 Cocaine dependence, uncomplicated; F12.20 Cannabis dependence, uncomplicated; F17.210 Nicotine dependence, cigarettes, uncomplicated; F19.280 Other psychoactive substance dependence with psychoactive substance-induced anxiety disorder; F19.282 Other psychoactive substance dependence with psychoactive substance-induced sleep disorder
CPT/HCPCS: 36415; 80053; 85027; 86780; 87635; 87811